=== PATIENT | female | born 1955 | race Caucasian/White ===

== ENCOUNTER → 2017-11-21 17:28 | Outpatient (CLI) | payer OTHER, MEDICAID, SELFPAY ==
--- NOTE | 2017-11-21 17:41 | DI.RAD.S_ITS ---
PROCEDURE: XR HAND LT MIN 3V INDICATIONS: Pain MCP 3rd finger; hx of foreign body in same area TECHNIQUE: 3 views of the hand(s) acquired. COMPARISON: None. FINDINGS: Bones: No fractures or dislocations. Carpal bones are normally aligned. No suspicious bony lesions. Mild to moderate interphalangeal degenerative osteophyte joint space narrowing. Soft tissues: No suspicious soft tissue calcifications. 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 No foreign body, and a specific source of the third MCP joint pain is not identified. Dictated by: Arron Mandujano M.D. on 11/22/2017 at 8:24 Approved by: Arron Mandujano M.D. on 11/22/2017 at 8:25
[2017-11-21 18:05] LABS: Add Manual Diff / Slide Review NO; Basophils Percent Auto 0.7 % (0-2); Eosinophils Percent Auto 1.3 % (2-4); Hematocrit 39.4 % (36-46); Hemoglobin 13.3 g/dL (12.0-16.0); Lymphocytes Percent Auto 16.7 % (25-40); Mean Corpuscular HGB Conc 33.8 % (30-36); Mean Corpuscular Hemoglobin 30.8 PG (26-34); Mean Corpuscular Volume 91.3 fL (80-100); Monocytes Percent Auto 4.4 % (3-14); Neutrophils Absolute Auto 8400 /uL (3000-5900); Neutrophils Percent Auto 76.9 % (50-75); Platelet Count 337 X10^3/uL (150-400); Red Blood Cell Count 4.31 X10^6/uL (4.0-5.2); Red Cell Distribution Width 14.1 % (11.6-14.8)
[2017-11-21 18:25] LABS: HEMOLYSIS < 15 (0-50); Iron 57 ug/dL (37-170)
[2017-11-21 18:27] LABS: Alanine Aminotransferase 28 IU/L (9-52); Albumin 4.3 g/dL (3.5-5.0); Albumin Globulin Ratio 1.5 (1.0-2.8); Alkaline Phosphatase 83 U/L (38-126); Aspartate Aminotransferase 24 IU/L (14-36); BUN Creatinine Ratio 22.5 (6-22); Bilirubin Total 0.3 mg/dL (0.2-1.3); Blood Urea Nitrogen 18 mg/dL (7-17); Calcium 10.1 mg/dL (8.4-10.2); Carbon Dioxide 32 mmol/L (22-32); Chloride 104 mmol/L (98-107); Estimated Glomerular Filt Rate > 60.0 mL/min (>60); Globulin 2.9 g/dL (1.7-4.1); Glucose 87 mg/dL (80-110); HEMOLYSIS < 15 (0-50); Sodium 144 mmol/L (137-145); Total Protein 7.2 g/dL (6.3-8.2)
[2017-11-21 18:32] LABS: Potassium 5.8 mmol/L (3.4-5.1)
[2017-11-21 18:36] LABS: Percent Iron Saturation 15 % (15-50); Total Iron Binding Capacity 368 ug/dL (265-497); Transferrin 313 mg/dL (206-381)
[2017-11-21 18:57] LABS: Thyroid Stimulating Hormone 0.94 uIU/mL (0.47-4.68)
[2017-11-21 19:02] LABS: Ferritin 19.5 ng/mL (11.1-264)
[2017-11-21 19:16] LABS: Vitamin B12 259 pg/mL (239-931)
== END ==
PROVIDERS: PCP Physician Assistant; Visit Provider Physician Assistant
DX: R55 Syncope and collapse (principal); M25.542 Pain in joints of left hand
CPT/HCPCS: 36415; 73130; 80053; 82607; 82728; 83540; 83550; 84443; 85025

== ENCOUNTER 2017-12-03 02:47 | Day surgery (SDC) | payer OTHER, MEDICAID, SELFPAY ==
[2017-12-03] VITALS (12 sets, daily range): BP systolic 77–99; BP diastolic 46–70; PULSE 67–98; RESP 10–24; TEMP 35.7–36.9; O2SAT 90–100; BMI 16.2
--- NOTE | 2017-12-03 03:27 | ED.FEMALEGU ---
HPI - Female Genitourinary General Chief complaint: Vaginal Bleeding Stated complaint: Vaginal bleeding during/after intercourse Time Seen by Provider: 12/03/17 03:00 Source: patient Mode of arrival: ambulatory Limitations: no limitations History of Present Illness HPI Narrative: 62F, non smoker, otherwise healthy presents with significant other and chief complaint of heavy vaginal bleeding after intercourse. She hasn't had intercourse in about 30 years. She denies any pain, But admits to significant heavy bright red bleeding. She admits to multiple episodes of vomiting and felt near syncopal. She admits to being pale and diaphoretic. She last ate at 10pm. She takes no blood thinners Complaint: vaginal bleeding Onset (ago): hour(s) Severity: moderate Vaginal discharge: blood, dark blood and blood clots Sexual activity: New Sexual Partners Patient : No Related Data Previous Rx's Medication Instructions Recorded estradiol 10 mcg vaginal tablet 10 mcg VAG 2XW #8 tab 11/21/17 medroxyprogesterone 5 mg tablet 5 mg PO DAILY #30 tab 11/21/17 cyanocobalamin (vit B-12) 1,000 1,000 mcg IM .COMPLEX #1 ml 11/30/17 mcg/mL injection solution Allergies Allergy/AdvReac Type Severity Reaction Status Date / Time No Known Allergies Allergy Uncoded 11/30/17 15:20 Review of Systems Review of Systems All systems reviewed & are unremarkable except as noted in HPI and below Constitutional Denies chills, Denies fever(s), Denies lethargy and Denies weakness Eyes Denies change in vision, Denies eye discharge, Denies irritation and Denies loss of vision ENT Ears, Nose, Mouth, and Throat: Denies change in voice, Denies neck pain and Denies sore throat Cardiovascular Denies chest pain, Denies irregular heart rhythm, Denies lightheadedness, Denies palpitations, Denies dyspnea, Denies dyspnea on exertion and Denies orthopnea Respiratory Denies cough, Denies dyspnea, Denies dyspnea on exertion and Denies wheezing Gastrointestinal Gastrointestinal: Denies abdominal pain, Denies change in bowel habits, Denies diarrhea, Denies nausea and Denies vomiting Genitourinary Reports abnormal vaginal bleeding, Denies hematuria, Denies flank pain, Denies urinary incontinence and Denies urinary urgency Musculoskeletal Denies neck pain Integumentary/Breasts Denies pruritus, Denies erythema, Denies rash and Denies wounds Neurologic Denies confusion, Denies loss of vision and Denies weakness Psychiatric Denies anxiety, Denies confusion, Denies depression, Denies homicidal ideation and Denies suicidal ideation Endocrine Denies palpitations Hematologic/Lymphatic Denies easy bruising Allergic/Immunologic Denies wheezing FOR[facility]LY [facility] Medical History Abdominal wall hernia (Chronic ~11/2016) Surgical History Hx of section (Resolved 10/1986) Family History Father No problems noted. Mother Cancer Social History Smoking Status: Former smoker Tobacco: How many years used: 13 second hand exposure: No alcohol intake: never substance use type: marijuana (smoke a tiny bit every day.) Exam Narrative Exam Narrative: 62-year-old female appears unwell, pale and sweaty Initial Vital Signs Initial Vital Signs: Vital Signs Temperature 96.2 F L 12/03/17 03:01 Pulse Rate 95 H 12/03/17 03:01 Respiratory Rate 15 12/03/17 03:01 Blood Pressure 98/61 12/03/17 03:01 Pulse Oximetry 100 12/03/17 03:01 Const General: cooperative, well developed, acute distress, anxious and diaphoretic Nutritional Appearance: thin Orientation: alert, awake, oriented x3 and not confused [facility] Head: normocephalic and atraumatic Ears: external ears normal and TM's normal bilaterally Nose: external nose normal and No nasal discharge Face and sinus: sinuses nontender, face symmetric, no sinus tenderness and No dry mucous membranes Mouth: oral mucosae normal and moist mucous membranes Teeth and gingiva: dentition normal Throat: tonsils normal and uvula midline Eyes General: appearance normal, both eyes and all related structures Eyelids: eyelids normal Conjunctivae: conjunctival abnormality ( pale) bilaterally Sclera: sclerae normal Pupils: PERRL EOM: EOM intact bilaterally Neck Neck: normal visual inspection, trachea midline, No lymphadenopathy, No midline deformity and No JVD Lymphatic: No lymphedema Chest Chest: normal inspection of the chest Resp Effort & Inspection: normal respiratory effort, able to speak in complete sentences, no respiratory distress and no use of accessory muscles Auscultation: clear to auscultation bilaterally, no rales, no rhonchi and no wheezes GI Inspection: non-distended Palpation: soft, no hepatosplenomegaly, No guarding, No pulsatile mass and No tender Auscultation: normal bowel sounds External Female Exam: exteral laceration ( small in bilateral labia, not likely the source of bleeding) Speculum Exam - Vagina: vaginal bleeding ( multiple very large clots and a large 5 cm deep laceration on the right vaginal wall and another 2-3 cm laceration on the left vaginal wall) OB/External & Speculum: vaginal bleeding ( multiple very large clots and a large 5 cm deep laceration on the right vaginal wall and another 2-3 cm laceration on the left vaginal wall) Course Orders Ordered: ED Orders 12/03/17 03:34 Basic Metabolic Panel Stat Complete Blood Count AUTO DIFF Stat Type and Screen Stat Acetaminophen (Tylenol) 325 mg PO NOW PRN PRN Reason: Pain, Mild (1-3) Hydrocodone Bitart/Acetaminophen ([place] 5/325) 1 tab PO Q4HR PRN PRN Reason: Pain, Moderate (4-6) Fentanyl (Sublimaze) 50 mcg IV Q5MIN PRN PRN Reason: Pain, Moderate (4-6) Lactated Ringer's (Lactated Ringers) 1,000 mls @ 42 mls/hr IV CONT COLTON Last Admin: 12/03/17 06:05 Dose: 42 mls/hr Ondansetron HCl (Zofran) 4 mg IV NOW PRN PRN Reason: Nausea And Vomiting Discontinued Medications Bupivacaine HCl/Epinephrine Bitart (Marcaine 0.25% W/ Epi) 10 ml INJ NOW ONE Stop: 12/03/17 06:21 Last Admin: 12/03/17 06:20 Dose: 10 ml Cefazolin Sodium/Dextrose (Ancef) 2 gm in 100 mls @ 200 mls/hr IV NOW ONE Stop: 12/03/17 06:04 Last Infusion: 12/03/17 06:20 Dose: 0 mls/hr Admin: 12/03/17 06:05 Dose: 200 mls/hr Lactated Ringer's (Lactated Ringers) 1,000 mls @ 100 mls/hr IV CONT COLTON Ondansetron HCl (Zofran) 4 mg IV NOW ONE Stop: 12/03/17 03:39 Last Admin: 12/03/17 03:39 Dose: 4 mg Ondansetron HCl (Zofran) 4 mg IV NOW ONE Stop: 12/03/17 05:15 Last Admin: 12/03/17 05:22 Dose: 4 mg Consultations Consultation #1: called to Dr. Dougherty for bedside consult. She elects to take patient to OR for laceration repair. Time: 04:10 Vital Signs - 8 hr 12/03/17 03:01 12/03/17 03:49 12/03/17 04:08 Temperature 96.2 F L Pulse Rate 95 H 98 H Respiratory Rate 15 16 Blood Pressure 98/61 Blood Pressure [Left Arm] 88/68 L 98/46 L Pulse Oximetry 100 100 12/03/17 05:00 12/03/17 05:30 12/03/17 06:06 Temperature 98.5 F Pulse Rate 87 87 83 Respiratory Rate 16 14 18 Blood Pressure 93/60 Blood Pressure [Left Arm] 99/70 90/64 Pulse Oximetry 100 99 97 12/03/17 06:38 Temperature 98.5 F Pulse Rate 75 Respiratory Rate 10 L Blood Pressure 90/57 L Blood Pressure [Left Arm] Pulse Oximetry 98 MDM - Female Genitourinary Medical Records Attestation: I reviewed the patient's medical records. Lab Data Attestation: I reviewed the patient's lab results. elevated WBC recognized and thought most likely to relate to physiologic stress of vomiting Result diagrams: 12/03/17 03:34 12/03/17 03:34 Lab Results 12/03/17 12/03/17 12/03/17 Range/Units 03:34 03:34 03:34 WBC 34.4 H* (4.5-11.0) X10^3/uL RBC 4.15 (4.0-5.2) X10^6/uL Hgb 12.2 (12.0-16.0) g/dL Hct 37.5 (36-46) % MCV 90.5 (80-100) fL MCH 29.4 (26-34) PG MCHC 32.5 (30-36) % RDW 13.8 (11.6-14.8) % Plt Count 414 H (150-400) X10^3/uL Neut % (Auto) Not Reportable Lymph % (Auto) Not Reportable [place] % (Auto) Not Reportable Eos % (Auto) Not Reportable Baso % (Auto) Not Reportable Seg Neutrophils % 74.0 H (38-70) % Band Neutrophils % 6.0 (3-7) % Lymphocytes % (Manual) 14.0 L (25-45) % Monocytes % (Manual) 3.0 (2-11) % Eosinophils % (Manual) 3.0 (2-4) % RBC Morphology Normal morphology Sodium 138 (137-145) mmol/L Potassium 3.9 (3.4-5.1) mmol/L Chloride 103 (98-107) mmol/L Carbon Dioxide 22 (22-32) mmol/L BUN 20 H (7-17) mg/dL Creatinine 0.80 (0.52-1.04) mg/dL Estimated GFR > 60.0 (>60) mL/min BUN/Creatinine Ratio 25.0 H (6-22) Glucose 177 H (80-110) mg/dL Calcium 9.4 (8.4-10.2) mg/dL Blood Type O Positive Antibody Screen Negative Point of Care Testing Test Results Not applicable Discharge Plan Departure Patient Disposition: Admitted as Observation Clinical Impression: Laceration of vagina, complicated Discharge Date/Time: 12/03/17 06:12 Interventions: ED Discharge Assessment Last Done: 12/03/17 06:00 Admit Date/Time: 12/03/17 05:58 Admit Provider: Brittany Dougherty
[2017-12-03] MEDS: ONDANSETRON 4 MG/2 ML INJ IV ×2 (03:39→05:22)
[2017-12-03 03:42] LABS: Hemoglobin 12.2 g/dL (12.0-16.0); Red Cell Distribution Width 13.8 % (11.6-14.8)
[2017-12-03 03:45] LABS: Hematocrit 37.5 % (36-46); Mean Corpuscular HGB Conc 32.5 % (30-36); Mean Corpuscular Hemoglobin 29.4 PG (26-34); Mean Corpuscular Volume 90.5 fL (80-100); Platelet Count 414 X10^3/uL (150-400); Red Blood Cell Count 4.15 X10^6/uL (4.0-5.2)
[2017-12-03 03:47] LABS: Add Manual Diff / Slide Review YES
[2017-12-03 03:48] LABS: White Blood Cell Count 34.4 X10^3/uL (4.5-11.0)
[2017-12-03 03:49] LABS: Blood Urea Nitrogen 20 mg/dL (7-17); Calcium 9.4 mg/dL (8.4-10.2); Carbon Dioxide 22 mmol/L (22-32); Chloride 103 mmol/L (98-107); Estimated Glomerular Filt Rate > 60.0 mL/min (>60); Glucose 177 mg/dL (80-110); HEMOLYSIS < 15 (0-50); Potassium 3.9 mmol/L (3.4-5.1); Sodium 138 mmol/L (137-145)
[2017-12-03 04:37] LABS: RBC Morphology Normal Morphology
--- NOTE | 2017-12-03 05:38 | PM.PREOP ---
Pre-operative Note Interval Note Pre-op Check: Yes History & Physical exam performed today by Physician Changes: No
--- NOTE | 2017-12-03 05:48 | P.HPOB_ITS ---
History of Present Illness Narrative: Savannah Clement is a 62 year old female with large vaginal laceration post intercourse [facility] Medical History Abdominal wall hernia (Chronic ~11/2016) Surgical History Hx of section (Resolved 10/1986) Family History Father No problems noted. Mother Cancer Social History Smoking Status: Former smoker Tobacco: How many years used: 13 second hand exposure: No alcohol intake: never substance use type: marijuana (smoke a tiny bit every day.) Meds Home Medications Medication Instructions Recorded Confirmed Type estradiol 10 mcg vaginal tablet 10 mcg VAG 2XW #8 tab 11/21/17 Rx medroxyprogesterone 5 mg tablet 5 mg PO DAILY #30 tab 11/21/17 Rx cyanocobalamin (vit B-12) 1,000 1,000 mcg IM .COMPLEX #1 ml 11/30/17 Rx mcg/mL injection solution Allergies Allergy/AdvReac Type Severity Reaction Status Date / Time No Known Allergies Allergy Uncoded 11/30/17 15:20 Review of Systems Review of Systems Patient denies abdominal pain. All systems reviewed & are unremarkable except as noted in HPI and below Exam Vital Signs (past 8 hours): - 12/03/17 03:01 12/03/17 03:49 12/03/17 04:08 Temperature 96.2 F L Pulse Rate 95 H 98 H Respiratory Rate 15 16 Blood Pressure 98/61 Blood Pressure [Left Arm] 88/68 L 98/46 L Pulse Oximetry 100 100 Oxygen Delivery Method Room Air Const General: anxious Nutritional Appearance: thin Orientation: alert HENMT Head: normal to inspection Resp Effort & Inspection: normal respiratory effort Auscultation: clear to auscultation bilaterally Cardio Rhythm: regular rhythm Heart Sounds: S1 normal and S2 normal GI Palpation: soft and no hepatosplenomegaly Rectal Exam: normal sphincter tone External Female Exam: external appearance normal Speculum Exam - Vagina: vaginal laceration (Right sidewall approximately 5 cm currently not actively bleeding) Speculum Exam - Cervix: normal appearance of the cervix Bimanual Exam- Vagina & Uterus: normal bimanual exam and uterine size normal Bimanual Exam- Adnexa, other: normal adnexae and adnexae non-tender Extrem General: normal to inspection Psych Affect: anxious affect Attitude: cooperative Objective Labs Result Diagrams: 12/03/17 03:34 12/03/17 03:34 Labs: Laboratory Results - last 24 hr 12/03/17 12/03/17 12/03/17 03:34 03:34 03:34 WBC 34.4 H* RBC 4.15 Hgb 12.2 Hct 37.5 MCV 90.5 MCH 29.4 MCHC 32.5 RDW 13.8 Plt Count 414 H Neut % (Auto) Not Reportable Lymph % (Auto) Not Reportable [place] % (Auto) Not Reportable Eos % (Auto) Not Reportable Baso % (Auto) Not Reportable Seg Neutrophils % 74.0 H Band Neutrophils % 6.0 Lymphocytes % (Manual) 14.0 L Monocytes % (Manual) 3.0 Eosinophils % (Manual) 3.0 RBC Morphology Normal morphology Sodium 138 Potassium 3.9 Chloride 103 Carbon Dioxide 22 BUN 20 H Creatinine 0.80 Estimated GFR > 60.0 BUN/Creatinine Ratio 25.0 H Glucose 177 H Calcium 9.4 Blood Type O Positive Antibody Screen Negative Assessment & Plan (1) Traumatic vaginal laceration: Qualifiers: Encounter type: initial encounter Qualified Code(s): S31.41XA - Laceration without foreign body of vagina and vulva, initial encounter Current visit: Yes Status: Acute Plan: Assessment/Plan Narrative: Patient did not feel she could tolerate repair in the emergency room. We will proceed to the operating room for suturing of the vaginal laceration. Time Spent With Patient Time with patient: 25 - 35 minutes
[2017-12-03] MEDS: LACTATED RINGERS 1,000 ML 42 ML IV (06:05)
[2017-12-03] MEDS: CEFAZOLIN 2 GM/100 ML FROZ.PIGGY IV (06:05)
[2017-12-03] MEDS: BUPIVACAINE 0.25% W/ EPI VIAL 10 ML INJ (06:20)
--- NOTE | 2017-12-03 06:44 | PM.OP.1 ---
Operative Date/Time/Diagnoses Date of procedure: 12/03/17 Time of procedure: 06:44 Pre-op diagnosis: vaginal laceration Post-op diagnosis: same Procedure & Clinicians Procedure: repair of vaginal laceration Same procedure as scheduled: Yes Indications: deep right sidewall vaginal laceration post intercourse Surgeon: Brittany Dougherty Click Yes if Unassisted: Yes Anesthesia Type: General Operative Notes Findings: superficial left sidewall vaginal tear with 6 cm long and 1 cm deep right vaginal sidewall tear. clear urine on straight cath. rectal exam does not reveal any abnormality Closure Type: primary Specimen(s): none sent Estimated Blood Loss (mL): 20 Blood products transfused: none Procedure in detail: Patient was brought to the operating room where she underwent general anesthesia. She was placed in low Yellofin stirrups and prepped and draped in the usual sterile fashion 2 g Ancef fever in prior to beginning of the case. Warming was with blankets. Postop stockings were not indicated due to short nature of the procedure. A check system was reviewed with the staff in the room prior to beginning of the case. The bladder was drained with in- and out catheter. 3- 0 Vicryl suture was used to repair the vaginal defect. No active bleeding at the end of the case. Patient went to recovery room in good condition. Counts of instruments and sponges were correct. Complications: none Condition: stable Disposition: same day surgery Plan for aftercare: home when awake and stable
--- NOTE | 2017-12-03 07:40 | SUR.PHASEII ---
ZAHRAA ARRIVED WITH CLOTHES FOR PT TO CHANGE INTO, PT RE4ADY TO GO, SMALL AMOUNT OF BLOODY DRAINAGE ON PEDRO PAD.M PT STEADY WHEN UP AND LEFT IN STABLE CONDITION.
== END 2017-12-03 07:40 | disposition home or self-care (01) ==
LOC: ED 03:06 → AC 06:00 → OR 14:58
PROVIDERS: Emergency Provider Emergency Medicine; PCP Physician Assistant; Visit Provider Specialist
PROC: (CPT 59300; principal; 2017-12-03 05:55)
DX: S31.41XA Laceration without foreign body of vagina and vulva, initial encounter (principal); Z87.891 Personal history of nicotine dependence
CPT/HCPCS: 57200; 36591; 80048; 85025; 86850; 86900; 86901; 96361; 96374; 96375; 96376; 99283; 99285; G0378; J0690; J2250; J2405; J2704; J3010

== ENCOUNTER → 2018-01-09 10:53 | Outpatient (CLI) | payer OTHER, MEDICAID, SELFPAY ==
--- NOTE | 2018-01-09 10:56 | DI.RAD.S_ITS ---
PROCEDURE: XR FINGER RT MIN 2V INDICATIONS: R index finger strain TECHNIQUE: AP hand, 2 views of the right finger(s) acquired. COMPARISON: None. FINDINGS: Bones: No fractures or dislocations. No suspicious bony lesions. There is diffuse interphalangeal joint degeneration. Mild first CMC and triscaphe joint degeneration. Soft tissues: No suspicious soft tissue calcifications. 3 mm radiopaque foreign body projecting adjacent to the third metacarpal head IMPRESSION: No fracture identified. Repeat foreign body versus postsurgical change projecting adjacent to the third metacarpal head. Dictated by: Tripp Hartley M.D. on 01/09/2018 at 14:00 Approved by: Tripp Hartley M.D. on 01/09/2018 at 14:03
[2018-01-09 12:01] LABS: Add Manual Diff / Slide Review NO; Eosinophils Percent Auto 1.8 % (2-4); Hematocrit 38.6 % (36-46); Hemoglobin 12.5 g/dL (12.0-16.0); Lymphocytes Percent Auto 25.5 % (25-40); Mean Corpuscular HGB Conc 32.4 % (30-36); Mean Corpuscular Hemoglobin 28.8 PG (26-34); Mean Corpuscular Volume 89.1 fL (80-100); Monocytes Percent Auto 7.5 % (3-14); Neutrophils Absolute Auto 6100 /uL (3000-5900); Neutrophils Percent Auto 64.2 % (50-75); Platelet Count 438 X10^3/uL (150-400); Red Blood Cell Count 4.33 X10^6/uL (4.0-5.2); Red Cell Distribution Width 13.8 % (11.6-14.8); White Blood Cell Count 9.6 X10^3/uL (4.5-11.0)
[2018-01-09 12:10] LABS: Uric Acid 4.3 mg/dL (2.5-6.2)
[2018-01-09 12:16] LABS: Rheumatoid Factor < 8.6 IU/mL (<12.0)
[2018-01-09 12:21] LABS: Erythrocyte Sedimentation Rate 21 MM/HR (0-20)
== END ==
PROVIDERS: PCP Physician Assistant; Visit Provider Family Medicine
DX: S63.610A Unspecified sprain of right index finger, initial encounter (principal); M18.11 Unilateral primary osteoarthritis of first carpometacarpal joint, right hand; M19.041 Primary osteoarthritis, right hand
CPT/HCPCS: 36415; 73140; 84550; 85025; 85651; 86430

== ENCOUNTER → 2018-01-19 16:41 | Outpatient (CLI) | payer OTHER, MEDICAID, SELFPAY | PROVIDERS: PCP Physician Assistant; Visit Provider Physician Assistant | DX: N89.8 Other specified noninflammatory disorders of vagina (principal); R10.32 Left lower quadrant pain | CPT/HCPCS: 87210; 87252; 87491; 87591 ==

== ENCOUNTER → 2018-02-03 10:56 | Outpatient (CLI) | payer OTHER, MEDICAID, SELFPAY ==
--- NOTE | 2018-02-03 10:58 | DI.US.S_ITS ---
PROCEDURE: US PELVIC COMPLETE INDICATIONS: LLQ PAIN TECHNIQUE: Real-time scanning was performed of the pelvic organs, with image documentation. The patient declined transvaginal imaging. COMPARISON: None. FINDINGS: Transabdominal scanning: Limited scanning through the kidneys shows no hydronephrosis. No pathologic free abdominal or pelvic fluid. Endovaginal scanning: Uterus: Uterus is normal in size at 7.9 x 1.8 x 3.1 cm. The endometrium measures 1 mm in combined thickness. Ovaries: The ovaries are only seen transabdominally, secondary to their superior location. The right ovary measures 1.5 x 0.8 x 1.5 cm. The left ovary measures 2.4 x 0.9 x 1.5 cm. The ovaries have a normal sonographic appearance. No adnexal masses are seen. IMPRESSION: Normal study, without a cause of left lower quadrant pain identified. Only transabdominal imaging was performed. Dictated by: Rhys Stovall M.D. on 02/03/2018 at 11:24 Approved by: Rhys Stovall M.D. on 02/03/2018 at 11:27
== END ==
PROVIDERS: PCP Physician Assistant; Visit Provider Physician Assistant
DX: R10.32 Left lower quadrant pain (principal)
CPT/HCPCS: 76856

== ENCOUNTER 2021-03-10 17:10 | Emergency (ER) | payer OTHER, MEDICAID, SELFPAY ==
[2021-03-10 17:28] VITALS: BP 129/75; PULSE 79; RESP 14; TEMP 36.3; O2SAT 100; BMI 16.8
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
--- NOTE | 2021-03-10 19:23 | PC.NURSE ---
Patients daughter in hallway raising voice at staff I need a wheelchair to get my mother out of here, we don't need to be yelled at by a doctor Spoke with Dr Peralta regarding interaction with daughter, provider and this RN entered room to speak with patient. Daughter immediately raised voice my mother won't be doing any talking she doesn't need to be yelled at Provider asked patient and daughter to stop yelling at him. Both patient and daughter continued to yell at Dr Peralta, reaching over patients bed and pointing in Dr Peralta's face. Dr Peralta again firmly told patient's daughter to stop yelling at him and left the room. I thought you were coming back with a wheelchair not a dirty trick to be yelled at by him Attempted to deescalate patient and daughter, offered a wheelchair, declined by patient. Patient and daughter briskly exited department with no difficulty.
--- NOTE | 2021-03-10 19:26 | PC.NURSE ---
This BARREL PLANER heard a raised voice coming from the triage room upon patient's arrival. This BARREL PLANER went to the traige room to assess the situation and ask the nurse if she needed assistance. The nurse was fine so that door was closed as there were patients in the hallway being treated who seemed frightened by the patient whose voice was raised.
--- NOTE | 2021-03-10 19:28 | PC.NURSE ---
This PHYSICAL SECURITY MANAGER retrieved patient from the waiting area. The patient was leaned up against the wall and did not help move herself so that this PHYSICAL SECURITY MANAGER could wheel her into the emergency department. The patient was raising her voice at her daughter in the huffman as this PHYSICAL SECURITY MANAGER was helping to wheel patient back. On the way through the department to get patient to her assigned room, patient was continuing to raise her voice and her daughter and demanding her to help her. Once in the room, patient continued to demand care from her daughter. This PHYSICAL SECURITY MANAGER assisted patient on to the bed and did not speak to the patient other than letting her know what kind of care would be done. This PHYSICAL SECURITY MANAGER got her into bed and the patient proceeded to raise her voice at both daughter and this PHYSICAL SECURITY MANAGER that she was cold. This PHYSICAL SECURITY MANAGER got many blankets from the warmer and took them back to her room. This PHYSICAL SECURITY MANAGER asked her to sit up so that a blanket could be wrapped around her shoulders. The patient said that she could not sit up and raised her voice at her daughter who was trying to adjust patient's pillows. This PHYSICAL SECURITY MANAGER assisted patient to sit up and a blanket was placed behind her. When the patient laid back, she immediately raised her voice at her daughter than her head was too far back as her pillows were placed more under her shoulders, likely by accident. The daughter raised her voice back and said that she was sorry and would fix it. The patient proceeded to sit herself up without any assistance and the daughter adjusted the pillows. The patient then raised her voice at her daughter again stating that the pillows were too far up. All the while this PHYSICAL SECURITY MANAGER was placing blankets on the patient. After 2 blankets were placed on patient, patient raised her voice at me saying that if anymore blankets were put on then she would be too hot. The daughter thanked this PHYSICAL SECURITY MANAGER for helping. This PHYSICAL SECURITY MANAGER told patient that vitals would need to be updated as they hadn't been taken for a while and stated that her arm would need to be uncovered. This PHYSICAL SECURITY MANAGER asked which arm was preferred to which patient stated loudly her left. Patient's arm was uncovered and the blood pressure cuff was placed. This PHYSICAL SECURITY MANAGER turned around to grab the pulse ox and patient immediately began to shout [id number]. The daughter covered patient's arm and apologized that her arm was cold. This PHYSICAL SECURITY MANAGER lifted the blanket slightly, applied the pulse ox to patient's finger, then cycled the vitals. While waiting for the vitals result, patient yelled BLISTEX to her daughter and continued to say it loudly until her daughter started to apply the balm to patient's lips. While applying, patient started to yell at her daughter that there was hair in her blistex. Daughter removed the hair and apologized. Once vitals were complete, this PHYSICAL SECURITY MANAGER told daughter that if patient needed any assistance at all, we were available. This PHYSICAL SECURITY MANAGER then told daughter that if she also needed anything, we would be very happy to assist her, as well. This PHYSICAL SECURITY MANAGER exited the room.
--- NOTE | 2021-03-10 19:45 | PC.NURSE ---
This GENERAL ROAD SUPERVISOR heard yelling from patient's room several times while there were no staff in the room. The yelling seemed to come from both daughter and patient.
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
--- NOTE | 2021-03-10 19:47 | PC.NURSE ---
This SWAGE TOOLSETTER witnessed patient's daughter speaking to two RNs in the department describing the interaction between the Dr and the patient. The daughter stated that she would like a wheelchair to leave the department. One of the RNs reported this to the Dr who attempted to go in and speak with the patient. Two RNs also went in with the Dr to witness. The door opened and I heard the daughter swear to the Dr and raised her voice. She stated that she and the patient would walk out without a wheelchair. Patient seemed to ambulate without difficulty as daughter walked her out of the department.
== END 2021-03-10 19:30 | disposition left against medical advice (07) ==
PROVIDERS: Emergency Provider Emergency Medicine
DX: S00.83XA Contusion of other part of head, initial encounter (principal); Z87.891 Personal history of nicotine dependence; V89.2XXA Person injured in unspecified motor-vehicle accident, traffic, initial encounter
CPT/HCPCS: 99281

== ENCOUNTER 2021-07-20 16:55 | Emergency (ER) | payer OTHER, SELFPAY ==
[2021-07-20 17:08] VITALS: BP 147/83; PULSE 114; RESP 20; TEMP 36.5; O2SAT 96
--- NOTE | 2021-07-20 17:24 | DI.CT.S_ITS ---
PROCEDURE: CT HEAD/BRAIN WO CON INDICATIONS: headache/dizziness TECHNIQUE: Noncontrast 4.5 mm thick angled axial sections acquired from the foramen magnum to the vertex, with coronal and sagittal reformats. For radiation dose reduction, the following was used: automated exposure control, adjustment of mA and/or kV according to patient size. COMPARISON: [facility], CT, CT HEAD WITHOUT CONTRAST, 01/02/2019, 14:07. FINDINGS: Image quality: Excellent. CSF spaces: Basal cisterns are patent. No extra-axial fluid collections. The ventricles are symmetric in size and shape. Brain: No intracranial bleeds or masses. Anterior right frontal encephalomalacia has developed in the interval since the prior exam which could represent sequela of prior trauma or infarct. There is cerebral volume loss for age, with resultant ventricular and sulcal prominence. There are periventricular and deep white matter chronic small vessel ischemic changes. There is intracranial internal carotid artery atherosclerosis. Skull and face: Calvarium and visualized facial bones appear intact, without suspicious lesions. Sinuses: Visualized sinuses and mastoids are clear. IMPRESSION: 1. No acute intracranial disease process. 2. Anterior right frontal encephalomalacia which could be related to prior trauma or cerebral vascular accident. Dictated by: Luzma Coughlin MD, PhD on 07/20/2021 at 17:39 Approved by: Luzma Coughlin MD, PhD on 07/20/2021 at 17:41
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
[2021-07-20] MEDS: SODIUM CHLORIDE 0.9% 1,000 ML 1000 ML IV (20:49)
[2021-07-20] MEDS: KETOROLAC 30 MG/ML VIAL 15 MG IV (20:49)
[2021-07-20] MEDS: METOCLOPRAMIDE 10 MG/2 ML INJ IV (20:50)
[2021-07-20 20:51] LABS: Add Manual Diff / Slide Review NO; Basophils Absolute Auto 100 /uL (0-100); Basophils Percent Auto 1.3 % (0-2); Eosinophils Absolute Auto 0 /uL (0-450); Eosinophils Percent Auto 0.2 % (2-4); Hematocrit 39.9 % (36-46); Hemoglobin 13.5 g/dL (12.0-16.0); Lymphocytes Absolute Auto 1900 /uL (1100-4500); Lymphocytes Percent Auto 20.7 % (25-40); Mean Corpuscular HGB Conc 33.9 % (30-36); Mean Corpuscular Hemoglobin 29.1 PG (26-34); Mean Corpuscular Volume 85.6 fL (80-100); Monocytes Absolute Auto 500 /uL (0-900); Monocytes Percent Auto 5.6 % (3-14); Neutrophils Absolute Auto 6600 /uL (1500-7000); Neutrophils Percent Auto 72.2 % (50-75); Platelet Count 368 X10^3/uL (150-400); Red Blood Cell Count 4.66 X10^6/uL (4.0-5.2); Red Cell Distribution Width 14.4 % (11.6-14.8); White Blood Cell Count 9.2 X10^3/uL (4.5-11.0)
[2021-07-20 21:03] LABS: Alanine Aminotransferase 25 IU/L (<35); Albumin 4.8 g/dL (3.5-5.0); Albumin Globulin Ratio 1.2 (1.0-2.8); Alkaline Phosphatase 115 U/L (38-126); Aspartate Aminotransferase 31 IU/L (14-36); BUN Creatinine Ratio 16.2 (6-22); Bilirubin Total 0.5 mg/dL (0.2-1.3); Blood Urea Nitrogen 11 mg/dL (7-17); C-Reactive Protein Quant 0.9 mg/dL (<1.0); Calcium 9.5 mg/dL (8.4-10.2); Carbon Dioxide 22 mmol/L (22-32); Chloride 105 mmol/L (98-107); Estimated Glomerular Filt Rate > 60 mL/min (>60); Glucose 115 mg/dL (80-110); HEMOLYSIS < 15 (0-50); Potassium 4.2 mmol/L (3.4-5.1); Sodium 137 mmol/L (137-145); Total Protein 8.8 g/dL (6.3-8.2)
[2021-07-20 21:16] LABS: Erythrocyte Sedimentation Rate 31 MM/HR (0-20)
[2021-07-20 21:40] LABS: Influenza A - CEPHEID Flu A NEGATIVE (NEGATIVE); Influenza B - CEPHEID Flu B NEGATIVE (NEGATIVE)
[2021-07-20 21:54] LABS: COVID-19 CEPHEID PCR (VTM/NP) Negative (Negative)
[2021-07-20 22:19] VITALS: BP 138/74; PULSE 88; RESP 18; O2SAT 99
== END 2021-07-20 22:20 | disposition home or self-care (01) ==
PROVIDERS: Emergency Provider Emergency Medicine
DX: R51.9 Headache, unspecified (principal); R11.0 Nausea; Z20.822 Contact with and (suspected) exposure to COVID-19
CPT/HCPCS: 36415; 70450; 80053; 85025; 85651; 86140; 87635; 96361; 96374; 96375; 99284; C9803; J1885; J2765

== ENCOUNTER 2021-08-15 16:01 | Emergency (ER) | payer OTHER, MEDICAID, SELFPAY ==
[2021-08-15 16:12] VITALS: BP 114/72; PULSE 90; RESP 18; TEMP 37.1; O2SAT 95; BMI 18.5
--- NOTE | 2021-08-15 16:27 | DI.RAD.S_ITS ---
PROCEDURE: XR CHEST 1V INDICATIONS: covid+, COPD, wheezing TECHNIQUE: One view of the chest was acquired. COMPARISON: [facility], CT, CT CHEST WITHOUT CONTRAST, 06/04/2021, 14:43. Outside Film, CR, XR CHEST 1 VIEW, 03/05/2021, 21:39. FINDINGS: Surgical changes and devices: None. Lungs and pleura: Lungs are clear, yet mildly hyperexpanded. No pleural effusions or pneumothorax. Mediastinum: Mediastinal contours appear normal. Heart size is normal. Atherosclerotic calcification of the aortic arch is noted. Bones and chest wall: No suspicious bony lesions. Age-appropriate bony degenerative changes are seen. Mild dextroconvex scoliotic curvature is seen. Overlying soft tissues appear unremarkable. IMPRESSION: No infiltrates are seen. The lungs are mildly hyperexpanded. Dictated by: Rhys Stovall M.D. on 08/15/2021 at 16:00 Approved by: Rhys Stovall M.D. on 08/15/2021 at 16:01
[2021-08-15] MEDS: guaiFENesin ER 600 MG TAB PO (16:45)
[2021-08-15] MEDS: ONDANSETRON 4 MG ODT SL (16:45)
[2021-08-15] MEDS: ACETAMINOPHEN 325 MG TABLET 650 MG PO (16:46)
[2021-08-15] MEDS: LORATADINE 10 MG TABLET PO (16:46)
--- NOTE | 2021-08-15 17:14 | ED.NAVMDI ---
HPI - Nausea/Vomiting/Diarrhea <Florence Rizzo [facility] - Last Filed: 08/15/21 18:43> General Chief complaint: Nausea/Vomiting/Diarrhea Stated complaint: COVID +, Strep,Sinus Infection,Ear Infection Time Seen by Provider: 08/15/21 16:13 Source: patient Mode of arrival: Ambulatory History of Present Illness HPI Narrative: This is a 65-year-old female with COPD who presents to the emergency department with her daughter complaining of COVID positive symptoms. Patient is unvaccinated for COVID, presents to the emergency department today for a cough, headache, tested positive for COVID yesterday, endorses a sore throat with concern for strep throat. Patient states that she has had symptoms on and off which are similar for approximately one month. She has been seen at multiple emergency department and left without being seen for not receiving treatments that she has wanted. Patient states that she has strep and a sinus infection and ear infection but has not had any of them evaluated by a clinician. Patient states that she has difficulty swallowing, states that every time she tries to swallow something, she will want to vomit later. She states that it is been this way since she was seen in the emergency department on 07/20/2021 for headache. She states that she was given IV fluid and this resolved her swallowing problem. Patient denies taking any medications for her COPD. Related Data Previous Rx's Medication Instructions Recorded medroxyprogesterone 5 mg tablet 5 mg PO DAILY #30 tabs 11/21/17 cyanocobalamin (vitamin B-12) 1,000 mcg IM .COMPLEX #1 mL 11/30/17 1,000 mcg/mL injection solution estradiol 10 mcg vaginal tablet 10 mcg vaginal .COMPLEX #22 tabs 12/27/17 acetaminophen 325 mg tablet 650 mg PO Q6H PRN pain #30 tabs 08/15/21 (Tylenol) cetirizine 10 mg tablet 10 mg PO DAILY PRN congestion #20 08/15/21 tabs guaifenesin 600 mg tablet, 600 mg PO BID PRN productive cough 08/15/21 extended release 12 hr (Mucinex) #14 tabs ibuprofen 600 mg tablet 600 mg PO Q8H PRN pain #30 tabs 08/15/21 nirmatrelvir 300 mg (150 mg x See Rx Instructions PO .COMPLEX 08/15/21 2)-ritonavir 100 mg tablet (EUA) #30 tabs (Paxlovid 300 mg () ondansetron 4 mg disintegrating 4 mg PO Q6-8H PRN nausea and 08/15/21 tablet vomiting #10 tabs Allergies Allergy/AdvReac Type Severity Reaction Status Date / Time No Known Drug Allergies Allergy Verified 03/10/21 17:28 Review of Systems <FALLON Cardozo - Last Filed: 08/15/21 18:43> Review of Systems Narrative: General: denies fever, chills, weakness, dizziness Head/Neck: denies headache, neck pain Eyes: denies visual changes, eye pain Cardio: denies chest pain, palpitations Respiratory: denies shortness of breath, endorses having a productive cough GI: denies abdominal pain, nausea, vomiting, or diarrhea : denies dysuria, hematuria or flank pain MSK: denies new joint pain, muscle weakness or swelling Skin: denies rash, itching or wound Neuro: denies numbness, tingling, dizziness Patient History <FALLON Cardozo - Last Filed: 08/15/21 18:43> Medical History Abdominal wall hernia (~11/2016) Laceration of vagina (12/03/17) Surgical History History of section (03/04/89) History of section (10/10/86) History of vaginal surgery (12/03/17) Family History Father No problems noted. Mother Cancer Sister No problems noted. Social History Smoking Status: Former smoker Tobacco: How many years used: 13 second hand exposure: No alcohol intake: never substance use type: marijuana (smoke a tiny bit every day.) Smoking Status: Former smoker alcohol intake frequency: holidays/special occasions only Substance Use Type: marijuana Exam <FALLON Cardozo - Last Filed: 08/15/21 18:43> Narrative Exam Narrative: Independently reviewed vitals signs and nursing notes. General: cooperative, comfortable, in no acute distress, well groomed Head: atraumatic, symmetrical facial expressions Neck: supple Eyes: equal round and reactive, EOMI, conjunctiva normal Nose: nares patent, no rhinorrhea Mouth/Throat: moist mucus membranes Cardiovascular: regular rate and rhythm, no peripheral edema, warm extremities Respiratory: able to speak in complete sentences, scattered and intermittent expiratory wheezes throughout lung mcdowell, without stridor, or rales. No retractions or tachypnea. No increased respiratory effort GI: abdomen soft, nontender to palpation, nondistended, no masses, no exquisite tenderness with exam, without guarding or rebound. MSK: moves all extremities, neurovascularly intact, no weakness, normal tone Skin: brisk capillary refill, no rash, no erythema Neuro: normal speech and cognition, A&O x3 Psych: mental status is grossly normal, congruent mood, normal affect, pleasant and cooperative Initial Vital Signs Initial Vital Signs: Vital Signs Temperature 98.7 F 08/15/21 16:12 Pulse Rate 90 08/15/21 16:12 Respiratory Rate 18 08/15/21 16:12 Blood Pressure 114/72 08/15/21 16:12 Pulse Oximetry 95 08/15/21 16:12 Oxygen Delivery Method 08/15/21 16:12 <Toma Fritz DO - Last Filed: 08/16/21 08:11> Initial Vital Signs Initial Vital Signs: Vital Signs Temperature 98.7 F 08/15/21 16:12 Pulse Rate 90 08/15/21 16:12 Respiratory Rate 18 08/15/21 16:12 Blood Pressure 114/72 08/15/21 16:12 Pulse Oximetry 95 08/15/21 16:12 Oxygen Delivery Method 08/15/21 16:12 Course <FALLON Cardozo - Last Filed: 08/15/21 18:43> Orders Ordered: Discontinued Medications Acetaminophen (Acetaminophen 325 Mg Tablet) 650 mg PO NOW ONE Stop: 08/15/21 16:31 Last Admin: 08/15/21 16:46 Dose: 650 mg Documented By: XANDER Albuterol (Albuterol Hfa Mdi 60 Puff/8 Gm Inhaler) 2 puff INH NOW ONE Stop: 08/15/21 17:40 Last Admin: 08/15/21 17:42 Dose: 2 puff Documented By: TODD Guaifenesin (Guaifenesin Er 600 Mg Tab) 600 mg PO NOW ONE Stop: 08/15/21 16:31 Last Admin: 08/15/21 16:45 Dose: 600 mg Documented By: XANDER Loratadine (Loratadine 10 Mg Tablet) 10 mg PO NOW ONE Stop: 08/15/21 16:31 Last Admin: 08/15/21 16:46 Dose: 10 mg Documented By: XANDER Ondansetron HCl (Ondansetron 4 Mg Odt) 4 mg SL NOW ONE Stop: 08/15/21 16:42 Last Admin: 08/15/21 16:45 Dose: 4 mg Documented By: XANDER Vital Signs Vital signs: Vital Signs - 8 hr 08/15/21 16:12 08/15/21 17:56 Temperature 98.7 F Pulse Rate 90 Respiratory Rate 18 Blood Pressure 114/72 Pulse Oximetry 95 Oxygen Delivery Method Room Air Room Air <Toma Fritz, - Last Filed: 08/16/21 08:11> Orders Ordered: Discontinued Medications Acetaminophen (Acetaminophen 325 Mg Tablet) 650 mg PO NOW ONE Stop: 08/15/21 16:31 Last Admin: 08/15/21 16:46 Dose: 650 mg Documented By: XANDER Albuterol (Albuterol Hfa Mdi 60 Puff/8 Gm Inhaler) 2 puff INH NOW ONE Stop: 08/15/21 17:40 Last Admin: 08/15/21 17:42 Dose: 2 puff Documented By: TODD Guaifenesin (Guaifenesin Er 600 Mg Tab) 600 mg PO NOW ONE Stop: 08/15/21 16:31 Last Admin: 08/15/21 16:45 Dose: 600 mg Documented By: XANDER Loratadine (Loratadine 10 Mg Tablet) 10 mg PO NOW ONE Stop: 08/15/21 16:31 Last Admin: 08/15/21 16:46 Dose: 10 mg Documented By: XANDER Ondansetron HCl (Ondansetron 4 Mg Odt) 4 mg SL NOW ONE Stop: 08/15/21 16:42 Last Admin: 08/15/21 16:45 Dose: 4 mg Documented By: XANDER Vital Signs Vital signs: Vital Signs - 8 hr 08/15/21 16:12 08/15/21 17:56 Temperature 98.7 F Pulse Rate 90 Respiratory Rate 18 Blood Pressure 114/72 Pulse Oximetry 95 Oxygen Delivery Method Room Air Room Air [facility] - Nausea/Vomiting/Diarrhea <FALLON Cardozo - Last Filed: 08/15/21 18:43> Lab Data Labs: Lab Results 08/15/21 Range/Units 16:35 Group A Strep (PCR) Cancelled Point of Care Testing Rapid Strep A Negative Imaging Data Chest x-ray: Radiologist's Impression: PROCEDURE:? XR CHEST 1V ? INDICATIONS:? covid+, COPD, wheezing ? TECHNIQUE:? One view of the chest was acquired.? ? COMPARISON:? [facility], CT, CT CHEST WITHOUT CONTRAST, 06/04/2021, 14:43.? Outside Film, CR, XR CHEST 1 VIEW, 03/05/2021, 21:39. ? FINDINGS:? ? Surgical changes and devices:? None.? ? Lungs and pleura:? Lungs are clear, yet mildly hyperexpanded.? No pleural effusions or pneumothorax.? ? Mediastinum:? Mediastinal contours appear normal.? Heart size is normal.? Atherosclerotic calcification of the aortic arch is noted.? ? Bones and chest wall:? No suspicious bony lesions.? Age-appropriate bony degenerative changes are seen.? Mild dextroconvex scoliotic curvature is seen.? ? Overlying soft tissues appear unremarkable.? ? ? IMPRESSION:? No infiltrates are seen. ? The lungs are mildly hyperexpanded. ? ? Dictated by: Rhys Stovall M.D. on 08/15/2021 at 16:00 ? ? Approved by: Rhys Stovall M.D. on 08/15/2021 at 16:01 ? [facility] Narrative Medical decision making narrative: This is a 65-year-old female smoker with history of COPD, COVID unvaccinated, and presents to the emergency department saying that she tested positive for COVID yesterday and has a productive cough and a sore throat. She was previously at [facility] prior to showing up here and with left against medical advice for not receiving the treatment she was looking for. She is here with her daughter who also did the same. The state that her cough and her symptoms have been ongoing for approximately one month but she tested negative for COVID on 08/12/2021 and tested positive for yesterday on 08/14/2021. A rapid strep screen was negative for group strep a, throat culture was obtained and is pending. Since patient is COVID positive, we will wait for culture to grow well prior to treating with antibiotics. Patient's chest x-ray shows lungs are mildly hyperexpanded without any infiltrates. She was given an albuterol inhaler and MDI teaching by respiratory therapy for wheezing. Encourage patient to avoid smoking while ill with a respiratory virus, opted to treat her with Paxlovid due to her comorbidities and age. She was counseled on taking this medication, she was given symptom management medications including cetirizine, guaifenesin Tylenol and ibuprofen as they say that they do not have any of these medications at home. She was given Zofran because she states that she vomits after she tries to swallow anything and cannot keep anything down. Patient was given Zofran, and she was able to tolerate her water, she has not had any gagging or vomiting episodes. COVID (+) on day 2 since testing positive without hypoxia, respiratory distress, dehydration, or focal exam to suggest secondary bacterial infection. Discussed CDC guidelines for quarantine, mask wearing, physical distancing, and infection prevention measures such as frequent handwashing. Discussed supportive treatments: Tylenol/Motrin as needed for pain/fever. OTC decongestant medications and/or antihistamines for symptomatic relief. Maintain adequate fluid intake. Follow-up with PCP as directed. Return to clinic/ER instructions discussed for new, not improving, or worsening symptoms. All questions answered. <Toma Fritz, DO - Last Filed: 08/16/21 08:11> Lab Data Labs: Lab Results 08/15/21 Range/Units 16:35 Group A Strep (PCR) Cancelled Point of Care Testing Rapid Strep A Negative Discharge Plan Departure Patient Disposition: Home Clinical Impression: COVID-19 Instructions: DI for Chronic Obstructive Pulmonary Disease, DI for COVID-19 (Suspected or Confirmed ) Activity Restrictions/Additional Instructions: *You have been diagnosed with COVID and COPD. Please use your albuterol inhaler for wheezing and chest tightness as needed. 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 Please stay hydrated and drink plenty of water. Take Tylenol and ibuprofen as needed for fever or pain. I have prescribed 30 tabs of each which you can both use. Please take cetirizine for the next 5-7 days or as long as you have congestion and a productive cough. Please take Mucinex for your productive cough to help that thin in make it easier to manage. Take Zofran as needed for nausea and vomiting. Please establish care with a primary care provider and follow-up with them about your symptoms, this will help you in the future treat your health conditions like COPD with inhalers which can be helpful for you. Try to avoid smoking, focus on staying hydrated to you do not get worse, and return to the emergency department if you are unable to treat your symptoms with medications that you have been provided. You do not have any pneumonia on x-ray today, please quarantine for as long as you continue to have symptoms, try to not share your symptoms with others. *What to do: *Please continue to take your regular medications as directed. [ x] New medication prescriptions sent to your pharmacy: [[facility] ] [ ] New medication written as a paper prescription [ ] No new medications given *Please follow up with your primary care provider in 2-3 days, call for an appointment. Let them know you were seen in the Emergency Department and that we asked that you be seen for follow-up. We will electronically transmit a record of today's note if your PCP is in our system *If you do not have a primary care provider please contact [phone] to establish care with one of the [facility] primary care providers. *Return to Emergency Department if you should have any new, worsening or concerning symptoms, such as [fever greater than 101F, chills, worsening pain, persistent vomiting or other bothersome symptoms] Prescriptions: New ondansetron 4 mg tablet,disintegrating 4 mg PO Q6-8H PRN (Reason: nausea and vomiting) Qty: 10 0RF cetirizine 10 mg tablet 10 mg PO DAILY PRN (Reason: congestion ) Qty: 20 0RF guaifenesin [Mucinex] 600 mg tablet extended release 12hr 600 mg PO BID PRN (Reason: productive cough) Qty: 14 0RF ibuprofen 600 mg tablet 600 mg PO Q8H PRN (Reason: pain) Qty: 30 0RF acetaminophen [Tylenol] 325 mg tablet 650 mg PO Q6H PRN (Reason: pain) Qty: 30 0RF Paxlovid (EUA) 150 mg x 2- 100 mg tablet See Rx Instructions .ROUTE .COMPLEX Qty: 30 0RF Rx Instructions: take TWO 150 mg tablets of nirmatrelvir with ONE 100 mg tablet of ritonavir twice daily for 5 days no kidney disease, tested positive for covid on 08/14/21 No Action medroxyprogesterone 5 mg tablet 5 mg PO DAILY Qty: 30 6RF cyanocobalamin (vitamin B-12) 1,000 mcg/mL solution 1,000 mcg IM .COMPLEX Qty: 1 0RF Rx Instructions: 1,000 mcg IM Q2 weeks for 3 injections then once a month thereafter; estradiol 10 mcg tablet 10 mcg VAG .COMPLEX Qty: 22 0RF Rx Instructions: 10 mcg VAG Daily x 2 weeks then twice weekly thereafter; Referrals: Miscellaneous,Doctor, MD [Primary Care Provider] - Visit Report Forms: Patient Portal/API <Toma Fritz DO - Last Filed: 08/16/21 08:11> Cosign ED Attending Nickature Attestation: I was immediately available in the department for consultation. Documentation has been reviewed.
[2021-08-15] MEDS: ALBUTEROL HFA MDI 60 PUFF/8 GM INHALER INH (17:42)
--- NOTE | 2021-08-15 19:04 | PC.NURSE ---
discharge instructions gone over. pt very upset that she did not get an IV. pt verbalized loudly her distress and not being able to take medications while she is throwing up. tried to encourage pt to take the pills we offered, she states she has not thrown up since this morning, she has been able to tolerate some sips of rodney trell, she should try to take the medications that will help her feel better. Pt loudly verbalized her distress at not being able to drive to her preferred pharmacy [facility] since she does not feel well, not being able to ask her boyfriend to pick them up since he drives and Hummer and it uses too much gas, not being able to ask her other daughter since her car is on the brink of exploding and then her other daughter would lose her car and then her job and have to move in to her RV with her and she already has one daughter to lives there. pt very upset that she is going home and has laundry due to her and her daughter sweating through blankets and dishes from trying to make food they can eat but not being able to eat anything. Pt asked multiple times to calm down and not yell. when pt continued to yell, i left stating i would return when she has calmed down. charge nurse sent in to finish discharge teaching.
== END 2021-08-15 19:00 | disposition home or self-care (01) ==
PROVIDERS: Emergency Provider Nurse Practitioner Critical Care Medicine
DX: U07.1 COVID-19 (principal)
CPT/HCPCS: 71045; 87070; 87880; 94640; 99283; A9270

== ENCOUNTER 2022-04-10 09:08 | Emergency (ER) | payer OTHER, MEDICAID, SELFPAY ==
[2022-04-10 09:14] VITALS: BP 122/78; PULSE 90; RESP 14; TEMP 36.5; O2SAT 97; BMI 18.0
--- NOTE | 2022-04-10 09:19 | DI.RAD.S_ITS ---
PROCEDURE: XR CHEST 2V INDICATIONS: cough x 4 days TECHNIQUE: 2 views of the chest were acquired. COMPARISON: [facility], CR, XR CHEST 1V, 08/15/2021, 16:40. FINDINGS: Surgical changes and devices: None. Lungs and pleura: Pulmonary hyperinflation. Right upper lobe nodular density measures 8 mm superimposed over the end of the right 2nd rib. Lung and both pleural spaces clear. Mediastinum: Mediastinal contours are normal. Heart size is normal. Atherosclerotic vascular calcification noted in the aortic arch. Bones and chest wall: No suspicious bony abnormalities. Soft tissues appear unremarkable. IMPRESSION: 1. Hyperinflation without focal infiltrate. 2. Nodular 8 mm density projecting over the end of the right 2nd rib, new from the prior. Consider either short-term interval follow-up chest x-ray or CT evaluation Approved by: Heri Ulrich M.D. on 04/10/2022 at 9:43
[2022-04-10 09:56] VITALS: PULSE 86; RESP 18; O2SAT 97
[2022-04-10 10:00] VITALS: BP 104/63; PULSE 86; RESP 19; O2SAT 97
[2022-04-10 10:10] LABS: Influenza A - CEPHEID Flu A NEGATIVE (NEGATIVE); Influenza B - CEPHEID Flu B NEGATIVE (NEGATIVE)
[2022-04-10 10:13] LABS: COVID-19 CEPHEID 4-PLEX PCR POSITIVE (Negative); Respiratory Syncytial Virus POSITIVE (Negative)
--- NOTE | 2022-04-10 10:13 | ED_ITS ---
HPI - General Adult General Chief complaint: Upper Respiratory Symptoms Stated complaint: hernia is pushed out T-1, been coughing T-5 Time Seen by Provider: 04/10/22 09:31 Source: patient Mode of arrival: Ambulatory Limitations: no limitations History of Present Illness HPI narrative: 66-year-old female. History of COPD. Not a current smoker. His on inhalers at home. Is here for a productive cough for the past several days. She also states that she is been coughing so much that her umbilical hernia started hurting last evening. That has improved for today. She was concerned that maybe she had pneumonia. She did have some antibiotics at home which she took that were left over from prior infections. She denies chest pain. Related Data Previous Rx's Medication Instructions Recorded medroxyprogesterone 5 mg tablet 5 mg PO DAILY #30 tabs 11/21/17 cyanocobalamin (vitamin B-12) 1,000 mcg IM .COMPLEX #1 mL 11/30/17 1,000 mcg/mL injection solution estradiol 10 mcg vaginal tablet 10 mcg vaginal .COMPLEX #22 tabs 12/27/17 acetaminophen 325 mg tablet 650 mg PO Q6H PRN pain #30 tabs 08/15/21 (Tylenol) cetirizine 10 mg tablet 10 mg PO DAILY PRN congestion #20 08/15/21 tabs guaifenesin 600 mg tablet, 600 mg PO BID PRN productive cough 08/15/21 extended release 12 hr (Mucinex) #14 tabs ibuprofen 600 mg tablet 600 mg PO Q8H PRN pain #30 tabs 08/15/21 nirmatrelvir 300 mg (150 mg See Rx Instructions PO .COMPLEX 08/15/21 x2)-ritonavir 100 mg tablet,dose #30 tabs pack(EUA) (Paxlovid) ondansetron 4 mg disintegrating 4 mg PO Q6-8H PRN nausea and 08/15/21 tablet vomiting #10 tabs Allergies Allergy/AdvReac Type Severity Reaction Status Date / Time Sulfa (Sulfonamide Allergy Unknown Verified 04/10/22 09:19 Antibiotics) Review of Systems Constitutional Constitutional: Reports system reviewed and no additional complaints, except as documented Gastrointestinal Gastrointestinal: Reports system reviewed and no additional complaints, except as documented Genitourinary Genitourinary: Reports system reviewed and no additional complaints, except as documented Integumentary/Breasts Skin/Breast: Reports system reviewed and no additional complaints, except as documented Hematologic/Lymphatic On Anticoagulants: No Patient History Medical History (Updated 04/10/22 @ 11:09 by Alonzo Peralta DO) Abdominal wall hernia (~11/2016) Laceration of vagina (12/03/17) Surgical History History of section (03/04/89) History of section (10/10/86) History of vaginal surgery (12/03/17) Family History Father No problems noted. Mother Cancer Sister No problems noted. Social History Smoking Status: Former smoker Tobacco: How many years used: 13 second hand exposure: No alcohol intake: never substance use type: marijuana (smoke a tiny bit every day.) Smoking Status: Former smoker alcohol intake frequency: holidays/special occasions only Substance Use Type: marijuana Exam Initial Vital Signs Initial Vital Signs: Vital Signs Temperature 97.7 F 04/10/22 09:14 Pulse Rate 90 04/10/22 09:14 Respiratory Rate 14 04/10/22 09:14 Blood Pressure 122/78 04/10/22 09:14 Pulse Oximetry 97 04/10/22 09:14 Oxygen Delivery Method 04/10/22 09:14 Const General: cooperative and comfortable HENMT Head: normal to inspection and normocephalic Resp Effort & Inspection: normal respiratory effort Auscultation: rales and rhonchi Cardio Rate: regular rate GI Other: Small reducible umbilical hernia Skin General: no rashes or lesions noted Neuro General: patient alert, patient awake and moves all extremities Extrem General: normal to inspection Course Orders Ordered: ED Orders 04/10/22 09:19 XR chest 2V Stat 04/10/22 09:21 Covid-19 + FLU A/B + RSV - PCR Stat Vital Signs Vital signs: Vital Signs - 8 hr 04/10/22 09:14 04/10/22 09:56 04/10/22 10:00 Temperature 97.7 F Pulse Rate 90 86 Respiratory Rate 14 18 Blood Pressure 122/78 104/63 Pulse Oximetry 97 97 Oxygen Delivery Method Room Air 04/10/22 10:00 04/10/22 10:30 04/10/22 10:30 Temperature Pulse Rate 86 80 Respiratory Rate 19 18 Blood Pressure 101/62 Pulse Oximetry 97 96 Oxygen Delivery Method Medical Decision Making Lab Data Lab results reviewed: Yes I reviewed the patient's lab results. Labs: Lab Results 04/10/22 Range/Units 09:21 SARS-CoV-2 (PCR) Positive H (Negative) Influenza A (RT-PCR) Flu a negative (NEGATIVE) Influenza B (RT-PCR) Flu b negative (NEGATIVE) RSV (PCR) Positive A (Negative) Imaging Data Chest x-ray: Radiologist's Impression: [address] [address] XRay Report Signed Patient: Savannah Clement MR#: [id number] : 1955 Acct:[id number] Age/Sex: 66 / F Date of Service: 04/10/22 Loc: ED Accession Number: [id number] ?? Procedure: XR chest 2V Ordering Provider: Alonzo Peralta D.O. PROCEDURE:? XR CHEST 2V ? INDICATIONS:? cough x 4 days ? TECHNIQUE:? 2 views of the chest were acquired.? ? COMPARISON:? [facility], [place], XR CHEST 1V, 08/15/2021, 16:40. ? FINDINGS:? ? Surgical changes and devices:? None.? ? Lungs and pleura:? Pulmonary hyperinflation.? Right upper lobe nodular density measures 8 mm superimposed over the end of the right 2nd rib.? Lung and both pleural spaces clear. ? Mediastinum:? Mediastinal contours are normal.? Heart size is normal.? Atherosclerotic vascular calcification noted in the aortic arch. ? Bones and chest wall:? No suspicious bony abnormalities.? Soft tissues appear unremarkable.? ? IMPRESSION:? ? 1. Hyperinflation without focal infiltrate.? ? 2. Nodular 8 mm density projecting over the end of the right 2nd rib, new from the prior. ?Consider either short-term interval follow-up chest x-ray or CT evaluation ? ? ? Approved by: Heri Ulrich M.D. on 04/10/2022 at 9:43? MDM Narrative Medical decision making narrative: Chest x-ray does not show signs of pneumonia. She does have history of COPD but is not hypoxic. Her lungs are clear. She is not wheezing today. She is positive for COVID and RSV which is most likely the source of her symptoms today. I did discuss this with her. She has albuterol at home. There is no indication for antibiotics. We did discuss the use of her albuterol at home. Will hold on further workup for now. She was given return precautions. She expressed understanding and agreement. Discharge Plan Departure Patient Disposition: Home Clinical Impression: COVID-19, Upper respiratory infection Instructions: COVID-19 Activity Restrictions/Additional Instructions: I recommend that you continue to take all of your medications as directed. Use your albuterol as needed at home like we discussed. Contact your primary doctor for follow-up. Please follow all current CDC guidelines with regard to COVID-19 and quarantine. Return to the emergency department for new symptoms. Prescriptions: No Action medroxyprogesterone 5 mg tablet 5 mg PO DAILY Qty: 30 6RF cyanocobalamin (vitamin B-12) 1,000 mcg/mL solution 1,000 mcg IM .COMPLEX Qty: 1 0RF Rx Instructions: 1,000 mcg IM Q2 weeks for 3 injections then once a month thereafter; estradiol 10 mcg tablet 10 mcg VAG .COMPLEX Qty: 22 0RF Rx Instructions: 10 mcg VAG Daily x 2 weeks then twice weekly thereafter; ondansetron 4 mg tablet,disintegrating 4 mg PO Q6-8H PRN (Reason: nausea and vomiting) Qty: 10 0RF cetirizine 10 mg tablet 10 mg PO DAILY PRN (Reason: congestion ) Qty: 20 0RF guaifenesin [Mucinex] 600 mg tablet extended release 12hr 600 mg PO BID PRN (Reason: productive cough) Qty: 14 0RF ibuprofen 600 mg tablet 600 mg PO Q8H PRN (Reason: pain) Qty: 30 0RF acetaminophen [Tylenol] 325 mg tablet 650 mg PO Q6H PRN (Reason: pain) Qty: 30 0RF Paxlovid (EUA) 150 mg x 2- 100 mg tablet See Rx Instructions .ROUTE .COMPLEX Qty: 30 0RF Rx Instructions: take TWO 150 mg tablets of nirmatrelvir with ONE 100 mg tablet of ritonavir twice daily for 5 days no kidney disease, tested positive for covid on 08/14/21 Referrals: Sandhya Torres PA-C [Primary Care Provider] - Stand Alone Forms: Patient Portal/API
[2022-04-10 10:30] VITALS: BP 101/62; PULSE 80; RESP 18; O2SAT 96
[2022-04-10 11:00] VITALS: BP 104/66; PULSE 82; RESP 22; O2SAT 96
== END 2022-04-10 11:26 | disposition home or self-care (01) ==
PROVIDERS: Emergency Provider Emergency Medicine; PCP Physician Assistant
DX: U07.1 COVID-19 (principal); J06.9 Acute upper respiratory infection, unspecified; B97.4 Respiratory syncytial virus as the cause of diseases classified elsewhere
CPT/HCPCS: 0241U; 71046; 99283

== ENCOUNTER → 2022-06-03 10:50 | Outpatient (CLI) | payer OTHER, MEDICAID, SELFPAY ==
[2022-06-03 13:02] LABS: Hematocrit 38.6 % (36-46); Hemoglobin 13.3 g/dL (12.0-16.0)
--- NOTE | 2022-06-11 16:40 | P.PFT.S_ITS ---
Pulmonary Function Test Referral & Results Date Patient Seen: 06/03/22 Results: The spirometry demonstrates an FVC of 2.76 L which is 88% of predicted. The FEV1 was measured at 1.92 L which is 80% of predicted. The FEV1/FVC ratio was 70 which is 90% of predicted. Following the administration of bronchodilator there was a 10% improvement in FEV1 and a 52% improvement in FEF 25-75%. Lung volumes show an SVC of 2.83 L which is 96% of predicted. The diffusing capacity was measured at 21.31 which is 87% of predicted. The maximum voluntary ventilation was normal Interpretation: This study demonstrates mild obstructive lung disease based on minimal reduction FEV1. There is evidence of some benefit following bronchodilator administration particularly small airway flow as demonstrated by the improvement in the FEF 25- 75% as above Lung volumes are normal Diffusing capacity also normal Clinical correlation suggested
== END ==
PROVIDERS: PCP Physician Assistant; Referring Provider Internal Medicine Critical Care Medicine; Visit Provider Internal Medicine Critical Care Medicine
DX: R91.1 Solitary pulmonary nodule (principal); Z87.891 Personal history of nicotine dependence; J98.8 Other specified respiratory disorders
CPT/HCPCS: 36415; 85014; 85018; 94060; 94726; 94729

== ENCOUNTER 2022-10-10 15:23 | Emergency (ER) | payer OTHER, MEDICAID, SELFPAY ==
[2022-10-10] VITALS (10 sets, daily range): BP systolic 98–102; BP diastolic 54–60; PULSE 61–77; RESP 20–38; TEMP 36.6; O2SAT 97–100; BMI 18.0
--- NOTE | 2022-10-10 15:27 | DI.RAD.S_ITS ---
PROCEDURE: XR CHEST 1V INDICATIONS: chest pain TECHNIQUE: One view of the chest was acquired. COMPARISON: [facility], CT, CT CHEST WITHOUT CONTRAST, 04/20/2022, 14:20. [facility], CR, XR CHEST 2 VIEWS, 05/04/2022, 11:50. [facility], CR, XR CHEST 2 VIEWS, 04/15/2022, 9:01. FINDINGS: Surgical changes and devices: None. Lungs and pleura: Lungs are clear, note appear hyperexpanded. No pleural effusions or pneumothorax. Mediastinum: Mediastinal contours appear normal. Heart size is normal. Bones and chest wall: No suspicious bony lesions. S-shaped scoliotic curvature is seen. Age-appropriate bony degenerative changes are seen. Overlying soft tissues appear unremarkable. IMPRESSION: Hyperexpanded lungs, without an acute cardiopulmonary process identified. The previously identified right upper lobe lesion is not well seen on this study, potentially obscured by the cardiac lead. Dictated by: Rhys Stovall M.D. on 10/10/2022 at 15:16 Approved by: Rhys Stovall M.D. on 10/10/2022 at 15:17
[2022-10-10 15:39] LABS: Add Manual Diff / Slide Review NO; Basophils Absolute Auto 200 /uL (0-100); Basophils Percent Auto 1.4 % (0-2); Eosinophils Absolute Auto 300 /uL (0-450); Eosinophils Percent Auto 2.2 % (2-4); Hematocrit 40.9 % (36-46); Hemoglobin 13.5 g/dL (12.0-16.0); Lymphocytes Absolute Auto 4600 /uL (1100-4500); Lymphocytes Percent Auto 39.6 % (25-40); Mean Corpuscular HGB Conc 32.9 % (30-36); Mean Corpuscular Hemoglobin 28.9 PG (26-34); Mean Corpuscular Volume 87.8 fL (80-100); Monocytes Absolute Auto 600 /uL (0-900); Monocytes Percent Auto 4.9 % (3-14); Neutrophils Absolute Auto 6000 /uL (1500-7000); Neutrophils Percent Auto 51.9 % (50-75); Platelet Count 366 X10^3/uL (150-400); Red Blood Cell Count 4.66 X10^6/uL (4.0-5.2); Red Cell Distribution Width 13.2 % (11.6-14.8); White Blood Cell Count 11.6 X10^3/uL (4.5-11.0)
[2022-10-10] MEDS: ASPIRIN 81 MG CHEW TAB 324 MG PO (15:42)
--- NOTE | 2022-10-10 15:43 | ED.CHESTPAIN ---
HPI - Chest Pain General Chief Complaint: Chest Pain Stated Complaint: Chest tightness Time Seen by Provider: 10/10/22 15:26 Source: patient, family and EMS Mode of arrival: EMS Limitations: no limitations History of Present Illness HPI narrative: Patient is a 67-year-old female who was brought in by EMS for evaluation of an episode that occurred just a few minutes ago. [place] She states she was at her normal state health when she had a fairly sudden onset of left-sided chest discomfort. She would no palpitations at the time. No shortness of breath. She then felt like her legs for not going to support her and she felt like she was going to pass out. Family was beside her. It does appear that she lost consciousness for a very short period of time that she does not remember the events that her family describes. When EMS arrives she was alert oriented. They did find that she was hypotensive with sitting up and felt much better when she was lying down. At the time of my exam she was not having any symptoms. No fevers. Five months ago she did have a partial lung resection secondary to lung cancer. Patient denied any abdominal pain. No nausea or vomiting. No headache. No vision changes. Related Data Previous Rx's Medication Instructions Recorded medroxyprogesterone 5 mg tablet 5 mg PO DAILY #30 tabs 11/21/17 cyanocobalamin (vitamin B-12) 1,000 mcg IM .COMPLEX #1 mL 11/30/17 1,000 mcg/mL injection solution estradiol 10 mcg vaginal tablet 10 mcg vaginal .COMPLEX #22 tabs 12/27/17 acetaminophen 325 mg tablet 650 mg PO Q6H PRN pain #30 tabs 08/15/21 (Tylenol) cetirizine 10 mg tablet 10 mg PO DAILY PRN congestion #20 08/15/21 tabs guaifenesin 600 mg tablet, 600 mg PO BID PRN productive cough 08/15/21 extended release 12 hr (Mucinex) #14 tabs ibuprofen 600 mg tablet 600 mg PO Q8H PRN pain #30 tabs 08/15/21 nirmatrelvir 300 mg (150 mg See Rx Instructions PO .COMPLEX 08/15/21 x2)-ritonavir 100 mg tablet,dose #30 tabs pack (Paxlovid) ondansetron 4 mg disintegrating 4 mg PO Q6-8H PRN nausea and 08/15/21 tablet vomiting #10 tabs Allergies Allergy/AdvReac Type Severity Reaction Status Date / Time Sulfa (Sulfonamide Allergy Unknown Verified 10/10/22 15:34 Antibiotics) Review of Systems Review of Systems ROS Unobtainable: All systems reviewed & are unremarkable except as noted in HPI and below Patient History Medical History (Updated 10/10/22 @ 18:41 by Alonzo Peralta DO) Abdominal wall hernia (~11/2016) Laceration of vagina (12/03/17) Surgical History History of section (03/04/89) History of section (10/10/86) History of vaginal surgery (12/03/17) Family History Father No problems noted. Mother Cancer Sister No problems noted. Social History Smoking Status: Former smoker Tobacco: How many years used: 13 second hand exposure: No alcohol intake: never substance use type: marijuana (smoke a tiny bit every day.) Smoking Status: Former smoker alcohol intake frequency: holidays/special occasions only Substance Use Type: marijuana Exam Initial Vital Signs Initial Vital Signs: Vital Signs Temperature 97.8 F 10/10/22 15:29 Pulse Rate 65 10/10/22 15:29 Respiratory Rate 20 10/10/22 15:29 Blood Pressure 102/58 L 10/10/22 15:29 Pulse Oximetry 99 10/10/22 15:29 Oxygen Delivery Method Room Air 10/10/22 15:29 Const General: cooperative, comfortable and No ill appearing [facility] Head: normal to inspection and normocephalic Chest Chest: normal inspection of the chest and No crepitus Resp Effort & Inspection: normal respiratory effort Auscultation: clear to auscultation bilaterally Cardio Rate: regular rate Rhythm: regular rhythm GI Inspection: normal to inspection and non-distended Skin General: no rashes or lesions noted Lesions: no lesions Neuro General: patient alert, patient awake, patient oriented x3 and moves all extremities Speech: speech normal Extrem General: normal to inspection and capillary refill normal Scores GCS Christie coma scale eye opening: Spontaneous [place] coma scale verbal response: Orientated [place] coma scale motor response: Obey commands [place] coma scale total score: 15 HEART Score Heart Score history: Slightly Suspicious Heart Score EKG: Normal Heart Score Age: > or = 65 years old Heart Score risk factors: 1-2 risk factors Heart Score troponin: < or = to normal limit Heart Score Total: 3 Course Orders Ordered: ED Orders 10/10/22 15:25 Complete Blood Count AUTO DIFF Stat Comprehensive Metabolic Panel Stat Ethanol (ETOH) Stat Lipase Stat Troponin & CK Cardiac Panel Stat 10/10/22 15:27 XR chest 1V Stat 10/10/22 15:29 D Dimer Stat 10/10/22 15:37 EKG-12 Lead Stat 10/10/22 17:40 Troponin & CK Cardiac Panel Stat Discontinued Medications Aspirin (Aspirin 81 Mg Chew Tab) 324 mg PO NOW ONE Stop: 10/10/22 15:29 Last Admin: 10/10/22 15:42 Dose: 324 mg Documented By: NEEL Sodium Chloride (Normal Saline 0.9%) 1,000 mls @ 1,000 mls/hr IV BOLUS ONE Stop: 10/10/22 16:25 Last Infusion: 10/10/22 17:58 Dose: 0 mls/hr Documented By: Admin: 10/10/22 15:44 Dose: 1,000 mls/hr Documented By: NEEL Vital Signs Vital signs: Vital Signs - 8 hr 10/10/22 15:29 10/10/22 15:32 10/10/22 15:33 Temperature 97.8 F Pulse Rate 65 65 67 Respiratory Rate 20 20 36 H Blood Pressure 102/58 L Pulse Oximetry 99 99 99 Oxygen Delivery Method Room Air 10/10/22 15:33 10/10/22 16:00 10/10/22 16:30 Temperature Pulse Rate 63 65 Respiratory Rate 32 H 29 H Blood Pressure 102/58 L Pulse Oximetry 100 97 Oxygen Delivery Method 10/10/22 16:58 10/10/22 16:58 10/10/22 17:00 Temperature Pulse Rate 62 61 Respiratory Rate 38 H 37 H Blood Pressure 99/60 Pulse Oximetry 99 100 Oxygen Delivery Method 10/10/22 17:30 10/10/22 18:00 Temperature Pulse Rate 62 71 Respiratory Rate 33 H 28 H Blood Pressure Pulse Oximetry 100 97 Oxygen Delivery Method MDM - Chest Pain Lab Data Attestation: I reviewed the patient's lab results. 10/10/22 15:25 10/10/22 15:25 Labs: Lab Results 10/10/22 10/10/22 10/10/22 Range/Units 15:25 15:25 15:29 WBC 11.6 H (4.5-11.0) X10^3/uL RBC 4.66 (4.0-5.2) X10^6/uL Hgb 13.5 (12.0-16.0) g/dL Hct 40.9 (36-46) % MCV 87.8 (80-100) fL MCH 28.9 (26-34) PG MCHC 32.9 (30-36) % RDW 13.2 (11.6-14.8) % Plt Count 366 (150-400) X10^3/uL Neut % (Auto) 51.9 (50-75) % Lymph % (Auto) 39.6 (25-40) % Rock % (Auto) 4.9 (3-14) % Eos % (Auto) 2.2 (2-4) % Baso % (Auto) 1.4 (0-2) % Neut # (Auto) 6000 (8936-0549) /uL Lymph # (Auto) 4600 H (5884-1861) /uL Rock # (Auto) 600 (0-900) /uL Eos # (Auto) 300 (0-450) /uL Baso # (Auto) 200 H (0-100) /uL D-Dimer 380 (<500) ng/ml Sodium 136 L (137-145) mmol/L Potassium 3.8 (3.4-5.1) mmol/L Chloride 101 (98-107) mmol/L Carbon Dioxide 25 (22-32) mmol/L BUN 11 (7-17) mg/dL Creatinine 0.90 (0.52-1.04) mg/dL Estimated GFR > 60 (>60) mL/min BUN/Creatinine Ratio 12.2 (6-22) Glucose 105 (80-110) mg/dL Calcium 9.3 (8.4-10.2) mg/dL Total Bilirubin 0.4 (0.2-1.3) mg/dL AST 31 (14-36) IU/L ALT 20 (<35) IU/L Alkaline Phosphatase 104 (38-126) U/L Total Creatine Kinase 67 (30-135) U/L Troponin I < 0.012 (0.01-0.034) ng/mL Total Protein 8.2 (6.3-8.2) g/dL Albumin 4.5 (3.5-5.0) g/dL Globulin 3.7 (1.7-4.1) g/dL Albumin/Globulin Ratio 1.2 (1.0-2.8) Lipase 83 (23-300) U/L Ethyl Alcohol < 10 ( - 10) mg/dL 10/10/22 Range/Units 17:40 WBC (4.5-11.0) X10^3/uL RBC (4.0-5.2) X10^6/uL Hgb (12.0-16.0) g/dL Hct (36-46) % MCV (80-100) fL MCH (26-34) PG MCHC (30-36) % RDW (11.6-14.8) % Plt Count (150-400) X10^3/uL Neut % (Auto) (50-75) % Lymph % (Auto) (25-40) % Rock % (Auto) (3-14) % Eos % (Auto) (2-4) % Baso % (Auto) (0-2) % Neut # (Auto) (7530-3636) /uL Lymph # (Auto) (6414-8242) /uL Rock # (Auto) (0-900) /uL Eos # (Auto) (0-450) /uL Baso # (Auto) (0-100) /uL D-Dimer (<500) ng/ml Sodium (137-145) mmol/L Potassium (3.4-5.1) mmol/L Chloride (98-107) mmol/L Carbon Dioxide (22-32) mmol/L BUN (7-17) mg/dL Creatinine (0.52-1.04) mg/dL Estimated GFR (>60) mL/min BUN/Creatinine Ratio (6-22) Glucose (80-110) mg/dL Calcium (8.4-10.2) mg/dL Total Bilirubin (0.2-1.3) mg/dL AST (14-36) IU/L ALT (<35) IU/L Alkaline Phosphatase (38-126) U/L Total Creatine Kinase 61 (30-135) U/L Troponin I < 0.012 (0.01-0.034) ng/mL Total Protein (6.3-8.2) g/dL Albumin (3.5-5.0) g/dL Globulin (1.7-4.1) g/dL Albumin/Globulin Ratio (1.0-2.8) Lipase (23-300) U/L Ethyl Alcohol ( - 10) mg/dL Imaging Data Chest x-ray: Radiologist's Impression: PROCEDURE:? XR CHEST 1V ? INDICATIONS:? chest pain ? TECHNIQUE:? One view of the chest was acquired.? ? COMPARISON:? [facility], CT, CT CHEST WITHOUT CONTRAST, 04/20/2022, 14:20.? [facility], CR, XR CHEST 2 VIEWS, 05/04/2022, 11:50.? [facility], CR, XR CHEST 2 VIEWS, 04/15/2022, 9:01. ? FINDINGS:? ? Surgical changes and devices:? None.? ? Lungs and pleura:? Lungs are clear, note appear hyperexpanded.? No pleural effusions or pneumothorax.? ? Mediastinum:? Mediastinal contours appear normal.? Heart size is normal.? ? Bones and chest wall:? No suspicious bony lesions.? S-shaped scoliotic curvature is seen. ?Age-appropriate bony degenerative changes are seen.? ? Overlying soft tissues appear unremarkable.? ? ? IMPRESSION:? ? Hyperexpanded lungs, without an acute cardiopulmonary process identified. ? The previously identified right upper lobe lesion is not well seen on this study, potentially obscured by the cardiac lead ECG Data Attestation: I personally reviewed and interpreted this ECG as follows: Interpretation: Sinus bradycardia Ventricular rate of 59 Normal axis Normal QRS Normal QTC No ST T wave changes MDM Narrative Medical decision making narrative: EKG is nonischemic. 2- troponins. D-dimer is negative. Chest x-ray is unremarkable. By the time the patient arrived here she states she felt much better. She continues to have no symptoms. She has a low risk heart score. Unsure of the exact etiology of the patient's symptoms but low suspicion for CVA or TIA or troponin. Recommend that you contact your primary doctor for follow-up. Return to the emergency department for new or worsening symptoms. Discharge Plan Departure Patient Disposition: Home Clinical Impression: Atypical chest pain Instructions: DI for Atypical Chest Pain Activity Restrictions/Additional Instructions: I recommend that you continue to take all of your medications as directed. Contact your primary doctor for a follow-up. Return to the emergency department for new or worsening symptoms. Prescriptions: No Action medroxyprogesterone 5 mg tablet 5 mg PO DAILY Qty: 30 6RF cyanocobalamin (vitamin B-12) 1,000 mcg/mL solution 1,000 mcg IM .COMPLEX Qty: 1 0RF Rx Instructions: 1,000 mcg IM Q2 weeks for 3 injections then once a month thereafter; estradiol 10 mcg tablet 10 mcg VAG .COMPLEX Qty: 22 0RF Rx Instructions: 10 mcg VAG Daily x 2 weeks then twice weekly thereafter; ondansetron 4 mg tablet,disintegrating 4 mg PO Q6-8H PRN (Reason: nausea and vomiting) Qty: 10 0RF cetirizine 10 mg tablet 10 mg PO DAILY PRN (Reason: congestion ) Qty: 20 0RF guaifenesin [Mucinex] 600 mg tablet extended release 12hr 600 mg PO BID PRN (Reason: productive cough) Qty: 14 0RF ibuprofen 600 mg tablet 600 mg PO Q8H PRN (Reason: pain) Qty: 30 0RF acetaminophen [Tylenol] 325 mg tablet 650 mg PO Q6H PRN (Reason: pain) Qty: 30 0RF Paxlovid 150 mg x 2- 100 mg tablet See Rx Instructions .ROUTE .COMPLEX Qty: 30 0RF Rx Instructions: take TWO 150 mg tablets of nirmatrelvir with ONE 100 mg tablet of ritonavir twice daily for 5 days no kidney disease, tested positive for covid on 08/14/21 Referrals: Sandhya Torres PA-C [Primary Care Provider] - Stand Alone Forms: Patient Portal/API
[2022-10-10] MEDS: SODIUM CHLORIDE 0.9% 1,000 ML 1000 ML IV (15:44)
[2022-10-10 15:45] LABS: Alanine Aminotransferase 20 IU/L (<35); Albumin 4.5 g/dL (3.5-5.0); Albumin Globulin Ratio 1.2 (1.0-2.8); Alkaline Phosphatase 104 U/L (38-126); Aspartate Aminotransferase 31 IU/L (14-36); BUN Creatinine Ratio 12.2 (6-22); Bilirubin Total 0.4 mg/dL (0.2-1.3); Blood Urea Nitrogen 11 mg/dL (7-17); Calcium 9.3 mg/dL (8.4-10.2); Carbon Dioxide 25 mmol/L (22-32); Chloride 101 mmol/L (98-107); Creatine Kinase 67 U/L (30-135); Estimated Glomerular Filt Rate > 60 mL/min (>60); Ethanol (ETOH) < 10 mg/dL; Globulin 3.7 g/dL (1.7-4.1); Glucose 105 mg/dL (80-110); HEMOLYSIS 38 (0-50); Lipase 83 U/L (23-300); Potassium 3.8 mmol/L (3.4-5.1); Sodium 136 mmol/L (137-145); Total Protein 8.2 g/dL (6.3-8.2)
[2022-10-10 15:51] LABS: D Dimer 380 ng/ml (<500)
[2022-10-10 15:56] LABS: Troponin I < 0.012 ng/mL (0.01-0.034)
[2022-10-10 17:59] LABS: Creatine Kinase 61 U/L (30-135)
[2022-10-10 18:12] LABS: Troponin I < 0.012 ng/mL (0.01-0.034)
== END 2022-10-10 17:00 | disposition home or self-care (01) ==
PROVIDERS: Emergency Provider Emergency Medicine; PCP Physician Assistant
DX: R07.89 Other chest pain (principal)
CPT/HCPCS: 36415; 71045; 80053; 80320; 82550; 83690; 84484; 85025; 85379; 93005; 93010; 99284

== ENCOUNTER 2023-04-11 15:18 | Emergency (ER) | payer OTHER, MEDICAID, SELFPAY ==
[2023-04-11] VITALS (18 sets, daily range): BP systolic 88–113; BP diastolic 59–74; PULSE 84–104; RESP 17–31; TEMP 35.9; O2SAT 93–97; BMI 18.0
--- NOTE | 2023-04-11 15:42 | DI.RAD.S_ITS ---
PROCEDURE: XR CHEST 1V INDICATIONS: Shortness of breath TECHNIQUE: One view of the chest was acquired. COMPARISON: [facility], CR, XR CHEST 1V, 10/10/2022, 15:37. FINDINGS: Surgical changes and devices: None. Lungs and pleura: Large right pleural effusion. Moderate right apical airspace opacity. Mediastinum: Mediastinal contours appear normal. Heart size is normal. Bones and chest wall: No suspicious bony lesions. Overlying soft tissues appear unremarkable. IMPRESSION: 1. Large right pleural effusion. 2. Right apical opacity, possibly indicating atelectasis, neoplasm, or pneumonia. Dictated by: Alethea Hager M.D. on 04/11/2023 at 16:23 Approved by: Alethea Hager M.D. on 04/11/2023 at 16:24
[2023-04-11 15:59] LABS: Add Manual Diff / Slide Review NO; Basophils Absolute Auto 100 /uL (0-100); Basophils Percent Auto 0.5 % (0-2); Eosinophils Absolute Auto 400 /uL (0-450); Eosinophils Percent Auto 3.6 % (2-4); Hematocrit 38.1 % (36-46); Hemoglobin 13.1 g/dL (12.0-16.0); Lymphocytes Absolute Auto 1900 /uL (1100-4500); Lymphocytes Percent Auto 16.9 % (25-40); Mean Corpuscular HGB Conc 34.2 % (30-36); Mean Corpuscular Hemoglobin 29.2 PG (26-34); Mean Corpuscular Volume 85.1 fL (80-100); Monocytes Absolute Auto 800 /uL (0-900); Monocytes Percent Auto 7.3 % (3-14); Neutrophils Absolute Auto 8200 /uL (1500-7000); Neutrophils Percent Auto 71.7 % (50-75); Platelet Count 583 X10^3/uL (150-400); Red Blood Cell Count 4.48 X10^6/uL (4.0-5.2); Red Cell Distribution Width 13.7 % (11.6-14.8); White Blood Cell Count 11.5 X10^3/uL (4.5-11.0)
[2023-04-11 16:11] LABS: Alanine Aminotransferase 33 IU/L (<35); Albumin 3.7 g/dL (3.5-5.0); Albumin Globulin Ratio 1.1 (1.0-2.8); Alkaline Phosphatase 187 U/L (38-126); Aspartate Aminotransferase 43 IU/L (14-36); BUN Creatinine Ratio 14.8 (6-22); Bilirubin Total 0.5 mg/dL (0.2-1.3); Blood Urea Nitrogen 8 mg/dL (7-17); Calcium 9.4 mg/dL (8.4-10.2); Carbon Dioxide 27 mmol/L (22-32); Chloride 99 mmol/L (98-107); Estimated Glomerular Filt Rate > 60 mL/min (>60); Globulin 3.5 g/dL (1.7-4.1); Glucose 123 mg/dL (80-110); Potassium 5.1 mmol/L (3.4-5.1); Sodium 130 mmol/L (137-145); Total Protein 7.2 g/dL (6.3-8.2)
[2023-04-11 16:12] LABS: Lactate (Lactic Acid) 0.8 mmol/L (0.7-2.1)
[2023-04-11 16:17] LABS: HEMOLYSIS 67 (0-50)
[2023-04-11] MEDS: MORPHINE 2 MG/ML INJ IV (16:22)
[2023-04-11 16:24] LABS: NT-proBNP (BNP-Adult 18+) 484 pg/mL (<125); Troponin I < 0.012 ng/mL (0.01-0.034)
--- NOTE | 2023-04-11 16:30 | PC.NURSE ---
Pt BP dropped (see MAR) after receiving analgesia medication. Pt placed in trandelenburged position and BP increased. Pt denies dizziness or lightheaded.
[2023-04-11 16:38] LABS: Influenza A - CEPHEID Flu A NEGATIVE (NEGATIVE); Influenza B - CEPHEID Flu B NEGATIVE (NEGATIVE); Respiratory Syncytial Virus Negative (Negative)
[2023-04-11 16:40] LABS: COVID-19 CEPHEID 4-PLEX PCR Negative (Negative)
--- NOTE | 2023-04-11 17:15 | ED_ITS ---
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 Patient was found to have recurrence had thoracentesis found to have fluid that had adenocarcinoma and pleural fluid this was followed by PET scan in May of 2022 which showed a primary tumor but without any other uptake. Patient had a repeat PET scan in March which shows metastatic lesions throughout the lungs, lymph nodes and possibly in the brain as well. Patient complains of shortness of breath, orthopnea, she complains of pain but mostly in her arm where her IV. Patient states no fevers. She has had some right-sided chest pain radiating towards her back. No nausea or vomiting. No changes with bowel movements she denies any issues with urination. She is felt generally weak has been able to get to the bathroom but was difficult to get out of the bathtub. She states her weight has been stable. She states she was seeing Dr. Oropeza who was her surgeon and who has referred her to Medical Oncology at [facility] where she was being seen but she has not actually established. Her only medications are vitamins currently B12 and vitamin-D. She was on Forteo for osteoporosis in the past. States only surgery before was her lung resection. She smoked from age [age], denies any alcohol or recreational drugs. Related Data Home Medications Medication Instructions Recorded Confirmed albuterol sulfate 90 mcg/actuation 2 inh inhalation Q6HR PRN Wheezing 04/11/23 04/11/23 aerosol inhaler ergocalciferol (vitamin D2) 1,250 1,250 mcg PO DAILY 04/11/23 04/11/23 mcg (50,000 unit) capsule Previous Rx's Medication Instructions Recorded acetaminophen 325 mg tablet 650 mg (2 x 325 mg) PO Q6H PRN 08/15/21 (Tylenol) pain #30 tabs oxycodone 5 mg tablet 5 mg PO Q6H PRN pain #20 tabs 04/11/23 Allergies Allergy/AdvReac Type Severity Reaction Status Date / Time Sulfa (Sulfonamide Allergy Unknown Verified 04/11/23 18:38 Antibiotics) Review of Systems <Toma Fritz DO - Last Filed: 04/12/23 09:47> Review of Systems ROS Unobtainable: All systems reviewed & are unremarkable except as noted in HPI and below Patient History <Toma Fritz DO - Last Filed: 04/12/23 09:47> Medical History (Updated 04/11/23 @ 19:26 by Toma Fritz DO) Laceration of vagina (12/03/17) Abdominal wall hernia (~11/2016) Surgical History History of vaginal surgery (12/03/17) History of section (10/10/86) History of section (03/04/89) Family History Father No problems noted. Mother Cancer Sister No problems noted. Social History Smoking Status: Former smoker Tobacco: How many years used: 13 second hand exposure: No alcohol intake: never substance use type: marijuana (smoke a tiny bit every day.) Smoking Status: Former smoker alcohol intake frequency: holidays/special occasions only Substance Use Type: does not use Exam <Toma Fritz DO - Last Filed: 04/12/23 09:47> Narrative Exam Narrative: GENERAL: Alert and oriented x three, cachectic female in [id number] distress HEENT: Head normocephalic, atraumatic, EOMI, pupils reactive, face symmetric, moist mucous membranes NECK: Supple, full range of motion CARDIOVASCULAR: Regular rate and rhythm without murmurs, rubs or gallops. No JVD. No edema bilateral lower extremities. RESPIRATORY: Breath sounds decreased on the right, no wheezes rales or rhonchi. No tachypnea or accessory muscle use. ABDOMEN: Soft, nontender. Normoactive bowel sounds all 4 quadrants. No guarding or rebound, rigidity, no mass : No CVA tenderness EXTREMITIES: Normal range of motion, no clubbing or edema. Neurovascularly intact NEUROLOGICAL: Cranial nerves II through XII grossly intact. Moving all extremities SKIN: Warm, dry, no petechiae, no rashes or lesions. Initial Vital Signs Initial Vital Signs: Vital Signs Temperature 96.6 F L 04/11/23 15:22 Pulse Rate 99 H 04/11/23 15:22 Respiratory Rate 20 04/11/23 15:22 Blood Pressure 90/59 L 04/11/23 15:22 Pulse Oximetry 97 04/11/23 15:22 Oxygen Delivery Method Room Air 04/11/23 15:22 <Nena Golden DO - Last Filed: 04/12/23 01:49> Initial Vital Signs Initial Vital Signs: Vital Signs Temperature 96.6 F L 04/11/23 15:22 Pulse Rate 99 H 04/11/23 15:22 Respiratory Rate 20 04/11/23 15:22 Blood Pressure 90/59 L 04/11/23 15:22 Pulse Oximetry 97 04/11/23 15:22 Oxygen Delivery Method Room Air 04/11/23 15:22 Course <Toma Fritz DO - Last Filed: 04/12/23 09:47> Orders Ordered: Discontinued Medications Sodium Chloride (Normal Saline 0.9%) 500 mls @ 1,000 mls/hr IV BOLUS ONE Stop: 04/11/23 17:17 Last Infusion: 04/11/23 20:00 Dose: Infused Documented By: Admin: 04/11/23 17:20 Dose: 1,000 mls/hr Documented By: DILMA Morphine Sulfate (Morphine 2 Mg/Ml Inj) 2 mg IV NOW ONE Stop: 04/11/23 16:15 Last Admin: 04/11/23 16:22 Dose: 2 mg Documented By: RB Vital Signs Vital signs: Vital Signs - 8 hr 04/11/23 18:15 04/11/23 18:30 04/11/23 18:45 Pulse Rate 93 H 88 86 Respiratory Rate 26 H 25 H 30 H Pulse Oximetry 94 93 94 04/11/23 19:00 04/11/23 19:17 04/11/23 19:30 Pulse Rate 86 104 H 89 Respiratory Rate 25 H 27 H Pulse Oximetry 95 96 04/11/23 19:45 Pulse Rate 94 H Respiratory Rate 27 H Pulse Oximetry <DO Nava Cali Last Filed: 04/12/23 01:49> Orders Ordered: Discontinued Medications Sodium Chloride (Normal Saline 0.9%) 500 mls @ 1,000 mls/hr IV BOLUS ONE Stop: 04/11/23 17:17 Last Infusion: 04/11/23 20:00 Dose: Infused Documented By: Admin: 04/11/23 17:20 Dose: 1,000 mls/hr Documented By: DILMA Morphine Sulfate (Morphine 2 Mg/Ml Inj) 2 mg IV NOW ONE Stop: 04/11/23 16:15 Last Admin: 04/11/23 16:22 Dose: 2 mg Documented By: RB Vital Signs Vital signs: Vital Signs - 8 hr 04/11/23 18:15 04/11/23 18:30 04/11/23 18:45 Pulse Rate 93 H 88 86 Respiratory Rate 26 H 25 H 30 H Pulse Oximetry 94 93 94 04/11/23 19:00 04/11/23 19:17 04/11/23 19:30 Pulse Rate 86 104 H 89 Respiratory Rate 25 H 27 H Pulse Oximetry 95 96 04/11/23 19:45 Pulse Rate 94 H Respiratory Rate 27 H Pulse Oximetry MDM - SOB/Dyspnea <Toma Fritz, DO - Last Filed: 04/12/23 09:47> Lab Data 04/11/23 15:40 04/11/23 15:40 Labs: Lab Results 04/11/23 04/11/23 Range/Units 15:40 15:50 WBC 11.5 H (4.5-11.0) X10^3/uL RBC 4.48 (4.0-5.2) X10^6/uL Hgb 13.1 (12.0-16.0) g/dL Hct 38.1 (36-46) % MCV 85.1 (80-100) fL MCH 29.2 (26-34) PG MCHC 34.2 (30-36) % RDW 13.7 (11.6-14.8) % Plt Count 583 H (150-400) X10^3/uL Neut % (Auto) 71.7 (50-75) % Lymph % (Auto) 16.9 L (25-40) % Nelson % (Auto) 7.3 (3-14) % Eos % (Auto) 3.6 (2-4) % Baso % (Auto) 0.5 (0-2) % Neut # (Auto) 8200 H (0381-5953) /uL Lymph # (Auto) 1900 (8557-3012) /uL Nelson # (Auto) 800 (0-900) /uL Eos # (Auto) 400 (0-450) /uL Baso # (Auto) 100 (0-100) /uL PT 12.0 (9.4-12.5) SECONDS INR 1.0 (0.9-1.3) Sodium 130 L (137-145) mmol/L Potassium 5.1 (3.4-5.1) mmol/L Chloride 99 (98-107) mmol/L Carbon Dioxide 27 (22-32) mmol/L BUN 8 (7-17) mg/dL Creatinine 0.54 (0.52-1.04) mg/dL Estimated GFR > 60 (>60) mL/min BUN/Creatinine Ratio 14.8 (6-22) Glucose 123 H (80-110) mg/dL Lactate 0.8 (0.7-2.1) mmol/L Calcium 9.4 (8.4-10.2) mg/dL Total Bilirubin 0.5 (0.2-1.3) mg/dL AST 43 H (14-36) IU/L ALT 33 (<35) IU/L Alkaline Phosphatase 187 H (38-126) U/L Troponin I < 0.012 (0.01-0.034) ng/mL NT-Pro-B Natriuret Pep 484 H (<125) pg/mL Total Protein 7.2 (6.3-8.2) g/dL Albumin 3.7 (3.5-5.0) g/dL Globulin 3.5 (1.7-4.1) g/dL Albumin/Globulin Ratio 1.1 (1.0-2.8) SARS-CoV-2 (PCR) Negative (Negative) Influenza A (RT-PCR) Flu a negative (NEGATIVE) Influenza B (RT-PCR) Flu b negative (NEGATIVE) RSV (PCR) Negative (Negative) Imaging Data Chest x-ray: Radiologist's Impression: Savannah Clement??67??F??1955 ? Allergy/Adv: Sulfa (Sulfonamide Antibiotics) (More??) Close Chest X-Ray (Signed) Alethea Hager - 04/11/23 Chest X-Ray (Signed) Rhys Stovall - 10/10/22 PFT Result 06/03/22 Chest X-Ray (Signed) Ulrich,Heri - 04/10/22 Chest X-Ray (Signed) Rhys Stovall - 08/15/21 Chest X-Ray (Cancelled) 08/15/[address] (Signed) Luzma Coughlin - 07/20/21 Pelvis Ultrasound (Signed) Rhys Stovall - 02/03/18 Finger X-Ray (Signed) Tripp Hartley - 01/09/18 Hand X-Ray (Signed) Arron Mandujano - 11/21/17 Launch?[address] [address] XRay Report Signed Patient: Savannah Clement MR#: [id number] : 1955 Acct:[id number] Age/Sex: 67 / F Date of Service: 04/11/23 Loc: ED Accession Number: [id number] Procedure: XR chest 1V Ordering Provider: Toma Fritz D.O. PROCEDURE: XR CHEST 1V INDICATIONS: Shortness of breath TECHNIQUE: One view of the chest was acquired. COMPARISON: [facility], , XR CHEST 1V, 10/10/2022, 15:37. FINDINGS: Surgical changes and devices: None. Lungs and pleura: Large right pleural effusion. Moderate right apical airspace opacity. Mediastinum: Mediastinal contours appear normal. Heart size is normal. Bones and chest wall: No suspicious bony lesions. Overlying soft tissues appear unremarkable. IMPRESSION: 1. Large right pleural effusion. 2. Right apical opacity, possibly indicating atelectasis, neoplasm, or pneumonia. Dictated by: Alethea Hager M.D. on 04/11/2023 at 16:23 Approved by: Alethea Hager M.D. on 04/11/2023 at 16:24 CT scan - chest: Radiologist's Impression: Close Chest CTA (Signed) Robles Manuel - 04/11/23 Chest X-Ray (Signed) Alethea Hager - 04/11/23 Launch?[address] [address] [address] Scan Report Signed Patient: Savannah Clement MR#: [id number] : 1955 Acct:[id number] Age/Sex: 67 / F Date of Service: 04/11/23 Loc: ED Accession Number: [id number] Procedure: CT angio chest PE protocol Ordering Provider: Toma Fritz D.O. PROCEDURE: CT ANGIO CHEST PE PROTOCOL INDICATIONS: sob, known cancer, worsening, effusion, r/o pe TECHNIQUE: After the administration of intravenous contrast, 2 mm thick sections acquired from the pulmonary apices to the posterior costophrenic angles. 3-dimensional maximum intensity projection (MIP) coronal and sagittal reformats were then acquired through the thorax. For radiation dose reduction, the following was used: automated exposure control, adjustment of mA and/or kV according to patient size. COMPARISON: [facility], CT, CT CHEST WITHOUT CONTRAST, 04/20/2022, 14:20. FINDINGS: Image quality: Diagnostic. Pulmonary arteries: Pulmonary arteries are normal in size, and demonstrate no intraluminal filling defects to suggest central pulmonary embolism. The proximal right pulmonary arteries are compressed but patent. Lower Neck: No enlarged lymph nodes. Thyroid: No thyroid nodules which require sonographic follow up, per consensus guidelines. Axillae: No enlarged lymph nodes. Chest Wall: Unremarkable. Bones: Unremarkable. Lungs and Pleura: Postsurgical changes from right upper lobe wedge resection. Large right pleural effusion. Atelectasis of the right lower middle lobes and majority of the right upper lobe. Hypoattenuation surrounding the wedge resection sutures extending to the hilum with a sales representative business courses component measuring 3.2 x 3.8 centimeters and 10 centimeters in the craniocaudal dimension. Portion of the right upper lobe is aerated and demonstrates diffuse ground-glass and consolidation. Paraseptal emphysematous changes are seen within the left upper lobe. Ground-glass is seen within the posterior left upper lobe, likely infectious. Subpleural nodule within the left lower lobe measuring 5 millimeters (5/108). Additional 5 millimeter subpleural nodule in the posterior left lower lobe (5/90). Heart: Heart size is normal. Small to moderate pericardial effusion. Thoracic Vessels: No aortic aneurysm. Mediastinum and Kiersten: Multiple prominent lymph nodes. Small fluid within the mediastinum. Esophagus: No wall thickening. No hiatal hernia. Upper Abdomen: Prominent upper abdominal lymph nodes are noted. Otherwise, no upper abdomen solid organs and bowel loops appear normal. IMPRESSION: 1. No pulmonary embolus. 2. Large right pleural effusion. Atelectasis of majority of the right lower and middle lobes. Hypoattenuating lesion within the right upper lobe extending to the hilum with sales representative business courses measurement of 3.2 x 3.8 centimeters and 10 centimeters in the craniocaudal dimension. Pulmonary arteries are compressed as they pass through this masslike lesion. Findings are concerning for mass. Infection is also in the differential. Recommend correlation with wedge resection pathology. 3. Within the aerated right upper lobe, there is ground-glass and consolidation. Ground-glass within the posterior left upper lobe. Findings are concerning for infection. 4. 5 millimeter left lower lobe subpleural nodules are noted. 5. Prominent mediastinal lymph nodes, may be reactive. Prominent upper abdominal lymph nodes are noted, nonspecific. Dictated by: Robles Manuel M.D. on 04/11/2023 at 18:32 Approved by: Robles Manuel M.D. on 04/11/2023 at 18:42 ECG Data Attestation: I personally reviewed and interpreted this ECG as follows: Interpretation: Sinus rhythm frequent PVCs rate of 94 IL 118 QRS 88 QTC of 450. Occasional PVC but no acute ST elevation or depression noted. [facility] Narrative Medical decision making narrative: 67-year-old female comes in with complaint of shortness of breath, patient has known metastatic lung cancer that is fairly new and progressive. Patient has not been hypoxic blood pressure has been low but she states she runs in the lower end. Patient labs overall show white count 11.5 normal hemoglobin platelets of 583. Sodium 130, potassium 5 1, BUN 8 with a creatinine of 0.5 far glucose of 123- lactate AST is 43 with an alk-phos of 187 negative troponin and a BNP of only 484. Chest x-ray shows a large right pleural effusion, patient is quite reluctant from thoracentesis. She has had once before states it was quite uncomfortable and she did not tolerate it well and it seemed to make her breathing worse. CT angio of the chest was obtained in order to rule out PE. CT shows a large right pleural effusion, no pulmonary emboli, patient does have masses present. Possible infection in the upper portion. Patient is very reluctant to have thoracentesis we did discuss it would likely make her feel better even with ambulation her oxygen does not drop below 94% although she feels very winded. Offered observation, thoracentesis. Patient is establishing with Oncology. Discussed she may return at any time. <Nena Chantel, DO - Last Filed: 04/12/23 01:49> Lab Data Labs: Lab Results 04/11/23 04/11/23 Range/Units 15:40 15:50 WBC 11.5 H (4.5-11.0) X10^3/uL RBC 4.48 (4.0-5.2) X10^6/uL Hgb 13.1 (12.0-16.0) g/dL Hct 38.1 (36-46) % MCV 85.1 (80-100) fL MCH 29.2 (26-34) PG MCHC 34.2 (30-36) % RDW 13.7 (11.6-14.8) % Plt Count 583 H (150-400) X10^3/uL Neut % (Auto) 71.7 (50-75) % Lymph % (Auto) 16.9 L (25-40) % Nelson % (Auto) 7.3 (3-14) % Eos % (Auto) 3.6 (2-4) % Baso % (Auto) 0.5 (0-2) % Neut # (Auto) 8200 H (0586-0232) /uL Lymph # (Auto) 1900 (9562-7990) /uL Nelson # (Auto) 800 (0-900) /uL Eos # (Auto) 400 (0-450) /uL Baso # (Auto) 100 (0-100) /uL PT 12.0 (9.4-12.5) SECONDS INR 1.0 (0.9-1.3) Sodium 130 L (137-145) mmol/L Potassium 5.1 (3.4-5.1) mmol/L Chloride 99 (98-107) mmol/L Carbon Dioxide 27 (22-32) mmol/L BUN 8 (7-17) mg/dL Creatinine 0.54 (0.52-1.04) mg/dL Estimated GFR > 60 (>60) mL/min BUN/Creatinine Ratio 14.8 (6-22) Glucose 123 H (80-110) mg/dL Lactate 0.8 (0.7-2.1) mmol/L Calcium 9.4 (8.4-10.2) mg/dL Total Bilirubin 0.5 (0.2-1.3) mg/dL AST 43 H (14-36) IU/L ALT 33 (<35) IU/L Alkaline Phosphatase 187 H (38-126) U/L Troponin I < 0.012 (0.01-0.034) ng/mL NT-Pro-B Natriuret Pep 484 H (<125) pg/mL Total Protein 7.2 (6.3-8.2) g/dL Albumin 3.7 (3.5-5.0) g/dL Globulin 3.5 (1.7-4.1) g/dL Albumin/Globulin Ratio 1.1 (1.0-2.8) SARS-CoV-2 (PCR) Negative (Negative) Influenza A (RT-PCR) Flu a negative (NEGATIVE) Influenza B (RT-PCR) Flu b negative (NEGATIVE) RSV (PCR) Negative (Negative) MDM Narrative Medical decision making narrative: 67-year-old female comes in with complaint of shortness of breath, patient has known metastatic lung cancer that is fairly new and progressive. Patient has not been hypoxic blood pressure has been low but she states she runs in the lower end. Patient labs overall show white count 11.5 normal hemoglobin platelets of 583. Sodium 130, potassium 5 1, BUN 8 with a creatinine of 0.5 far glucose of 123- lactate AST is 43 with an alk-phos of 187 negative troponin and a BNP of only 484. Chest x-ray shows a large right pleural effusion, patient is quite reluctant from thoracentesis. She has had once before states it was quite uncomfortable and she did not tolerate it well and it seemed to make her breathing worse. CT angio of the chest was obtained in order to rule out PE. CT shows a large right pleural effusion, no pulmonary emboli, patient does have masses present. Possible infection in the upper portion. Patient is very reluctant to have thoracentesis we did discuss it would likely make her feel better even with ambulation her oxygen does not drop below 94% although she feels very winded. Offered observation, thoracentesis. Patient is establishing with Oncology. Discussed she may return at any time. Dr. Golden-patient never seen by me, discharged prior to sign-out Discharge Plan Departure Patient Disposition: Home Clinical Impression: Pleural effusion on right, Lung cancer Activity Restrictions/Additional Instructions: Follow up with oncology at [facility]. You would benefit from a thoracentesis, is you have elected to not have one today I would talk to your oncology team about having 1 or possibly PleurX catheter for recurrent effusions. You may take oxycodone 1-2 tablets every 6 hours as needed for pain. Prescriptions sent to [facility] in [place]. Please return for new or worsening chest pain, increasing shortness of breath, lightheadedness, passing out, new swelling of your extremities or other new or concerning changes. Prescriptions: New oxycodone 5 mg tablet 5 mg PO Q6H PRN (Reason: pain) Qty: 20 0RF No Action ergocalciferol (vitamin D2) 1,250 mcg (50,000 unit) capsule 1,250 mcg PO DAILY albuterol sulfate 90 mcg/actuation HFA aerosol inhaler 2 inh inhalation Q6HR PRN (Reason: Wheezing) acetaminophen [Tylenol] 325 mg tablet 650 mg PO Q6H PRN (Reason: pain) Qty: 30 0RF Referrals: Sandhya Torres PA-C [Primary Care Provider] - Stand Alone Forms: Patient Portal/API
[2023-04-11] MEDS: SODIUM CHLORIDE 0.9% 500 ML 1000 ML IV (17:20)
--- NOTE | 2023-04-11 17:34 | DI.CT.S_ITS ---
PROCEDURE: CT ANGIO CHEST PE PROTOCOL INDICATIONS: sob, known cancer, worsening, effusion, r/o pe TECHNIQUE: After the administration of intravenous contrast, 2 mm thick sections acquired from the pulmonary apices to the posterior costophrenic angles. 3-dimensional maximum intensity projection (MIP) coronal and sagittal reformats were then acquired through the thorax. For radiation dose reduction, the following was used: automated exposure control, adjustment of mA and/or kV according to patient size. COMPARISON: [facility], CT, CT CHEST WITHOUT CONTRAST, 04/20/2022, 14:20. FINDINGS: Image quality: Diagnostic. Pulmonary arteries: Pulmonary arteries are normal in size, and demonstrate no intraluminal filling defects to suggest central pulmonary embolism. The proximal right pulmonary arteries are compressed but patent. Lower Neck: No enlarged lymph nodes. Thyroid: No thyroid nodules which require sonographic follow up, per consensus guidelines. Axillae: No enlarged lymph nodes. Chest Wall: Unremarkable. Bones: Unremarkable. Lungs and Pleura: Postsurgical changes from right upper lobe wedge resection. Large right pleural effusion. Atelectasis of the right lower middle lobes and majority of the right upper lobe. Hypoattenuation surrounding the wedge resection sutures extending to the hilum with a environmental marketing representative component measuring 3.2 x 3.8 centimeters and 10 centimeters in the craniocaudal dimension. Portion of the right upper lobe is aerated and demonstrates diffuse ground-glass and consolidation. Paraseptal emphysematous changes are seen within the left upper lobe. Ground-glass is seen within the posterior left upper lobe, likely infectious. Subpleural nodule within the left lower lobe measuring 5 millimeters (5/108). Additional 5 millimeter subpleural nodule in the posterior left lower lobe (5/90). Heart: Heart size is normal. Small to moderate pericardial effusion. Thoracic Vessels: No aortic aneurysm. Mediastinum and Kiersten: Multiple prominent lymph nodes. Small fluid within the mediastinum. Esophagus: No wall thickening. No hiatal hernia. Upper Abdomen: Prominent upper abdominal lymph nodes are noted. Otherwise, no upper abdomen solid organs and bowel loops appear normal. IMPRESSION: 1. No pulmonary embolus. 2. Large right pleural effusion. Atelectasis of majority of the right lower and middle lobes. Hypoattenuating lesion within the right upper lobe extending to the hilum with environmental marketing representative measurement of 3.2 x 3.8 centimeters and 10 centimeters in the craniocaudal dimension. Pulmonary arteries are compressed as they pass through this masslike lesion. Findings are concerning for mass. Infection is also in the differential. Recommend correlation with wedge resection pathology. 3. Within the aerated right upper lobe, there is ground-glass and consolidation. Ground-glass within the posterior left upper lobe. Findings are concerning for infection. 4. 5 millimeter left lower lobe subpleural nodules are noted. 5. Prominent mediastinal lymph nodes, may be reactive. Prominent upper abdominal lymph nodes are noted, nonspecific. Dictated by: Robles Manuel M.D. on 04/11/2023 at 18:32 Approved by: Robles Manuel M.D. on 04/11/2023 at 18:42
--- NOTE | 2023-04-11 20:02 | PC.NURSE ---
Left AC PIV was in place prior to this nurse shift 1900. DC documentation completed
== END 2023-04-11 20:03 | disposition home or self-care (01) ==
PROVIDERS: Emergency Provider Emergency Medicine; PCP Physician Assistant
DX: J90 Pleural effusion, not elsewhere classified (principal); C34.90 Malignant neoplasm of unspecified part of unspecified bronchus or lung; Z20.822 Contact with and (suspected) exposure to COVID-19
CPT/HCPCS: 0241U; 36415; 71045; 71275; 80053; 83605; 83880; 84484; 85025; 85610; 93005; 93010; 96361; 96374; 99284; J2270; Q9967

== ENCOUNTER 2023-04-12 13:18 | Emergency (ER) | payer OTHER, MEDICAID, SELFPAY ==
--- NOTE | 2023-04-12 | DI.RAD.S_ITS ---
PROCEDURE: XR CHEST 1V INDICATIONS: POST THORA TECHNIQUE: One view of the chest was acquired. COMPARISON: [facility], CR, XR CHEST 1V, 04/12/2023, 14:33. FINDINGS: Surgical changes and devices: None. Lungs and pleura : No pneumothorax. Decreased, small right pneumothorax. Moderate airspace opacity within the right upper and lower lung. Mediastinum: Mediastinal contours appear normal. Heart size is normal. Bones and chest wall: No suspicious bony lesions. Overlying soft tissues appear unremarkable. IMPRESSION: 1. Right lung pneumonia. Continued plain film surveillance is recommended to ensure resolution, and to exclude underlying or central malignancy. Dictated by: Alethea Hager M.D. on 04/12/2023 at 15:51 Approved by: Alethea Hager M.D. on 04/12/2023 at 15:52
[2023-04-12 13:27] VITALS: BP 100/61; PULSE 67; RESP 20; TEMP 36.6; O2SAT 97; BMI 18.0
--- NOTE | 2023-04-12 14:28 | DI.RAD.S_ITS ---
PROCEDURE: XR CHEST 1V INDICATIONS: large pleural effusion TECHNIQUE: One view of the chest was acquired. COMPARISON: , CR, XR CHEST 1V, 04/11/2023, 16:08. FINDINGS: Surgical changes and devices: None. Lungs and pleura: No change in large right pleural effusion and right apically density. Mediastinum: Mediastinal contours appear normal. Heart size is normal. Bones and chest wall: No suspicious bony lesions. Overlying soft tissues appear unremarkable. IMPRESSION: No change in large right pleural effusion right apical density. Continued plain film surveillance is recommended to ensure resolution, and to exclude underlying or central malignancy. Dictated by: Alethea Hager M.D. on 04/12/2023 at 14:45 Approved by: Alethea Hager M.D. on 04/12/2023 at 14:45
--- NOTE | 2023-04-12 14:30 | DI.US.S_ITS ---
PROCEDURE: US THORACENTESIS INDICATIONS: RIGHT PLEURAL EFFUSION TECHNIQUE: The indications, alternatives, benefits, risks, and complications of the procedure were explained to the patient. Written informed consent was obtained and placed in the chart. The chest was examined sonographically, and an appropriate site was chosen for thoracentesis. The skin was prepared and draped in the usual sterile fashion, and 1% lidocaine was infiltrated from the skin down through the pleural surface. A 19-gauge catheter-covered needle was then introduced into the pleural space, the catheter was advanced and the needle was withdrawn, and thereafter pleural fluid was aspirated. The catheter was then removed and a dressing was applied. COMPARISON: None. FINDINGS: Access site: Right hemithorax. Needle: One-Step centesis catheter with introducer needle. Fluid volume and description: 2 L of yellowish clear fluid. Fluid sent for diagnostic testing: None. Medications: 1% lidocaine for local anaesthesia. Complications: None; post-procedural chest radiograph is pending to assess for pneumothorax. IMPRESSION: Successful ultrasound-guided thoracentesis. Dictated by: Jacobo Antonio M.D. on 04/12/2023 at 15:25 Approved by: Jacobo Antonio M.D. on 04/12/2023 at 15:31
--- NOTE | 2023-04-12 15:34 | PC.NURSE ---
Pt was taken to DI immediately after she was roomed for thoracentesis, pt returned to room @ 1534
--- NOTE | 2023-04-12 15:42 | ED_ITS ---
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 Patient has had reoccurrence, has Mets throughout her lungs as well as masses, had thoracentesis and found to have adenocarcinoma within the pleural fluid. Had a PET scan May 2022 that showed only uptake in the primary tumor and had repeat PET scan on March 30, 2023 which showed metastatic lesions throughout the lungs, lymph nodes and possibly in the brain as well. Patient was seen yesterday for shortness of breath, orthopnea and dyspnea on exertion. She had a very large right pleural effusion. Patient was very reluctant to have thoracentesis yesterday as the prior she found made her feel like it was worse. Patient returns today for thoracentesis. Patient continues to have same symptoms no other acute changes. Current medications or B12 and vitamin-D. States only surgery before was lung resection. Prior smoker, no alcohol or recreational drugs. She is accompanied by her . She is currently in process of establishing with Oncology at [facility], she was following with a prior thoracic surgeon. Related Data Home Medications Medication Instructions Recorded Confirmed albuterol sulfate 90 mcg/actuation 2 inh inhalation Q6HR PRN Wheezing 04/11/23 04/11/23 aerosol inhaler ergocalciferol (vitamin D2) 1,250 1,250 mcg PO DAILY 04/11/23 04/11/23 mcg (50,000 unit) capsule Previous Rx's Medication Instructions Recorded acetaminophen 325 mg tablet 650 mg (2 x 325 mg) PO Q6H PRN 08/15/21 (Tylenol) pain #30 tabs oxycodone 5 mg tablet 5 mg PO Q6H PRN pain #20 tabs 04/11/23 Allergies Allergy/AdvReac Type Severity Reaction Status Date / Time Sulfa (Sulfonamide Allergy Unknown Verified 04/11/23 18:38 Antibiotics) Review of Systems Review of Systems ROS Unobtainable: All systems reviewed & are unremarkable except as noted in HPI and below Patient History Medical History (Updated 04/12/23 @ 16:02 by Toma Fritz DO) Laceration of vagina (12/03/17) Abdominal wall hernia (~11/2016) Surgical History (Updated 04/12/23 @ 16:02 by Toma Fritz DO) History of vaginal surgery (12/03/17) History of section (10/10/86) History of section (03/04/89) Family History Father No problems noted. Mother Cancer Sister No problems noted. Social History Smoking Status: Former smoker Tobacco: How many years used: 13 second hand exposure: No alcohol intake: never substance use type: marijuana (smoke a tiny bit every day.) Smoking Status: Former smoker alcohol intake frequency: holidays/special occasions only Substance Use Type: does not use Exam Narrative Exam Narrative: GENERAL: Alert and oriented x three, female moderate distress. HEENT: Head normocephalic, atraumatic, EOMI, pupils reactive, face symmetric, moist mucous membranes NECK: Supple, full range of motion CARDIOVASCULAR: Regular rate and rhythm without murmurs, rubs or gallops. RESPIRATORY: Breath sounds decreased on the right, positive for tachypnea, no accessory muscle use. ABDOMEN: Soft, nontender. Normoactive bowel sounds all 4 quadrants. No guarding or rebound, rigidity, no mass : No CVA tenderness EXTREMITIES: Normal range of motion, no clubbing or edema. Neurovascularly intact NEUROLOGICAL: Cranial nerves II through XII grossly intact. Moving all extremities SKIN: Warm, dry, no petechiae, no rashes or lesions. Initial Vital Signs Initial Vital Signs: Vital Signs Temperature 97.8 F 04/12/23 13:27 Pulse Rate 67 04/12/23 13:27 Respiratory Rate 20 04/12/23 13:27 Blood Pressure 100/61 04/12/23 13:27 Pulse Oximetry 97 04/12/23 13:27 Oxygen Delivery Method Room Air 04/12/23 13:27 Course Orders Ordered: ED Orders 04/12/23 14:28 Chest [XR chest 1V] Stat 04/12/23 14:30 US thoracentesis Stat 04/12/23 15:55 CBC Auto Diff [Complete Blood Count AUTO DIFF] Stat CMP [Comprehensive Metabolic Panel] Stat Lipase Stat PTT Partial Thromboplastin Shashank Stat Prothrombin Time INR Stat Vital Signs Vital signs: Vital Signs - 8 hr 04/12/23 13:27 04/12/23 16:00 04/12/23 17:00 Temperature 97.8 F Pulse Rate 67 87 89 Respiratory Rate 20 16 16 Blood Pressure 100/61 102/86 101/88 Pulse Oximetry 97 93 95 Oxygen Delivery Method Room Air Room Air Room Air 04/12/23 17:04 Temperature Pulse Rate 89 Respiratory Rate 16 Blood Pressure 104/86 Pulse Oximetry 96 Oxygen Delivery Method Room Air MDM - SOB/Dyspnea Lab Data 04/12/23 15:55 04/12/23 15:55 Labs: Lab Results 04/12/23 Range/Units 15:55 WBC 13.0 H (4.5-11.0) X10^3/uL RBC 4.62 (4.0-5.2) X10^6/uL Hgb 13.2 (12.0-16.0) g/dL Hct 40.2 (36-46) % MCV 87.1 (80-100) fL MCH 28.6 (26-34) PG MCHC 32.9 (30-36) % RDW 14.0 (11.6-14.8) % Plt Count 586 H (150-400) X10^3/uL Neut % (Auto) 76.3 H (50-75) % Lymph % (Auto) 12.7 L (25-40) % [place] % (Auto) 6.7 (3-14) % Eos % (Auto) 3.5 (2-4) % Baso % (Auto) 0.8 (0-2) % Neut # (Auto) 38710 H (5737-9720) /uL Lymph # (Auto) 1700 (0415-7156) /uL [place] # (Auto) 900 (0-900) /uL Eos # (Auto) 500 H (0-450) /uL Baso # (Auto) 100 (0-100) /uL PT 12.1 (9.4-12.5) SECONDS INR 1.1 (0.9-1.3) APTT 31 (25.1-36.5) SECONDS Sodium 131 L (137-145) mmol/L Potassium 4.7 (3.4-5.1) mmol/L Chloride 96 L (98-107) mmol/L Carbon Dioxide 31 (22-32) mmol/L BUN 10 (7-17) mg/dL Creatinine 0.74 (0.52-1.04) mg/dL Estimated GFR > 60 (>60) mL/min BUN/Creatinine Ratio 13.5 (6-22) Glucose 118 H (80-110) mg/dL Calcium 9.6 (8.4-10.2) mg/dL Total Bilirubin 0.4 (0.2-1.3) mg/dL AST 32 (14-36) IU/L ALT 30 (<35) IU/L Alkaline Phosphatase 199 H (38-126) U/L Total Protein 6.9 (6.3-8.2) g/dL Albumin 3.6 (3.5-5.0) g/dL Globulin 3.3 (1.7-4.1) g/dL Albumin/Globulin Ratio 1.1 (1.0-2.8) Lipase 21 L (23-300) U/L Imaging Data thoracentesis US: Radiologist's Impression: Close Thoracentesis Ultrasound (Signed) Jacobo Antonio - 04/12/23 Chest X-Ray (Signed) Alethea Hager - 04/12/23 Chest X-Ray 04/12/23 Chest CTA (Signed) Robles Maneul - 04/11/23 Chest X-Ray (Signed) Alethea Hager - 04/11/23 Chest X-Ray (Signed) Rhys Stovall - 10/10/22 PFT Result 06/03/22 Chest X-Ray (Signed) Heri Ulrich - 04/10/22 Chest X-Ray (Signed) Rhys Stovall - 08/15/21 Chest X-Ray (Cancelled) 08/15/[address] (Signed) Luzma Coughlin - 07/20/21 Pelvis Ultrasound (Signed) Rhys Stovall - 02/03/18 Finger X-Ray (Signed) Tripp Hartley - 01/09/18 Hand X-Ray (Signed) Arron Mandujano - 11/21/[address] [address] Ultrasound Report Signed Patient: Savannah Clement MR#: [id number] : 1955 Acct:[id number] Age/Sex: 67 / F Date of Service: 04/12/23 Loc: ED Accession Number: [id number] Procedure: US thoracentesis Ordering Provider: Toma Fritz D.O. PROCEDURE: US THORACENTESIS INDICATIONS: RIGHT PLEURAL EFFUSION TECHNIQUE: The indications, alternatives, benefits, risks, and complications of the procedure were explained to the patient. Written informed consent was obtained and placed in the chart. The chest was examined sonographically, and an appropriate site was chosen for thoracentesis. The skin was prepared and draped in the usual sterile fashion, and 1% lidocaine was infiltrated from the skin down through the pleural surface. A 19- gauge catheter-covered needle was then introduced into the pleural space, the catheter was advanced and the needle was withdrawn, and thereafter pleural fluid was aspirated. The catheter was then removed and a dressing was applied. COMPARISON: None. FINDINGS: Access site: Right hemithorax. Needle: One-Step centesis catheter with introducer needle. Fluid volume and description: 2 L of yellowish clear fluid. Fluid sent for diagnostic testing: None. Medications: 1% lidocaine for local anaesthesia. Complications: None; post-procedural chest radiograph is pending to assess for pneumothorax. IMPRESSION: Successful ultrasound-guided thoracentesis. Dictated by: Jacobo Antonio M.D. on 04/12/2023 at 15:25 Approved by: Jacobo Antonio M.D. on 04/12/2023 at 15:31 [facility] Narrative Medical decision making narrative: Spoke with Radiology, they kindly were able to perform ultrasound-guided thoracentesis for the patient. Patient feels significantly improved afterwards. Post x-ray shows improvement of effusion, as read as pneumonia but suspect some of this is from patient's known cancer. Patient did have labs repeated. Labs are overall fairly stable. Sodium is slightly up at 1:31 a.m. from 04/05 yesterday alk-phos is trended upwards slightly 199 normal renal function, LFTs are appropriate. Patient's white count slightly up as well as platelets. Chest x-ray notes pneumonia but patient has a mass that is about 10 cm x 3.8 x 3.2 cm in the right upper lobe but I suspect this is more what their visualizing her x-ray imaging. We will hold off on any antibiotics Patient continues to feel improved Discharge Plan Departure Patient Disposition: Home Clinical Impression: Pleural effusion, right, Lung cancer, Status post thoracentesis Instructions: DI for Thoracentesis Activity Restrictions/Additional Instructions: I hope you continue to feel improved after thoracentesis. Your primary care physician can also order to have these performed regularly as an outpatient procedure here at [facility]. I would also discussed with Oncology if you have recurrence of the effusion or fluid in your lung very quickly they will sometimes place a permanent form of catheter. Please return for fevers increasing chest pain or shortness of breath, lightheadedness or passing out, vomiting, new swelling in extremities or other new or concerning changes. Prescriptions: No Action ergocalciferol (vitamin D2) 1,250 mcg (50,000 unit) capsule 1,250 mcg PO DAILY albuterol sulfate 90 mcg/actuation HFA aerosol inhaler 2 inh inhalation Q6HR PRN (Reason: Wheezing) oxycodone 5 mg tablet 5 mg PO Q6H PRN (Reason: pain) Qty: 20 0RF acetaminophen [Tylenol] 325 mg tablet 650 mg PO Q6H PRN (Reason: pain) Qty: 30 0RF Referrals: Sandhya Torres PA-C [Primary Care Provider] - Stand Alone Forms: Patient Portal/API
[2023-04-12 16:00] VITALS: BP 102/86; PULSE 87; RESP 16; O2SAT 93
[2023-04-12 16:03] LABS: Add Manual Diff / Slide Review NO; Basophils Absolute Auto 100 /uL (0-100); Basophils Percent Auto 0.8 % (0-2); Eosinophils Absolute Auto 500 /uL (0-450); Eosinophils Percent Auto 3.5 % (2-4); Hematocrit 40.2 % (36-46); Hemoglobin 13.2 g/dL (12.0-16.0); Lymphocytes Absolute Auto 1700 /uL (1100-4500); Lymphocytes Percent Auto 12.7 % (25-40); Mean Corpuscular HGB Conc 32.9 % (30-36); Mean Corpuscular Hemoglobin 28.6 PG (26-34); Mean Corpuscular Volume 87.1 fL (80-100); Monocytes Absolute Auto 900 /uL (0-900); Monocytes Percent Auto 6.7 % (3-14); Neutrophils Absolute Auto 10000 /uL (1500-7000); Neutrophils Percent Auto 76.3 % (50-75); Platelet Count 586 X10^3/uL (150-400); Red Blood Cell Count 4.62 X10^6/uL (4.0-5.2)
[2023-04-12 16:15] LABS: INR 1.1 (0.9-1.3); Prothrombin Time 12.1 SECONDS (9.4-12.5)
[2023-04-12 16:19] LABS: Alanine Aminotransferase 30 IU/L (<35); Albumin 3.6 g/dL (3.5-5.0); Albumin Globulin Ratio 1.1 (1.0-2.8); Alkaline Phosphatase 199 U/L (38-126); Aspartate Aminotransferase 32 IU/L (14-36); BUN Creatinine Ratio 13.5 (6-22); Bilirubin Total 0.4 mg/dL (0.2-1.3); Blood Urea Nitrogen 10 mg/dL (7-17); Calcium 9.6 mg/dL (8.4-10.2); Carbon Dioxide 31 mmol/L (22-32); Chloride 96 mmol/L (98-107); Estimated Glomerular Filt Rate > 60 mL/min (>60); Globulin 3.3 g/dL (1.7-4.1); Glucose 118 mg/dL (80-110); HEMOLYSIS < 15 (0-50); Lipase 21 U/L (23-300); Potassium 4.7 mmol/L (3.4-5.1); Sodium 131 mmol/L (137-145); Total Protein 6.9 g/dL (6.3-8.2)
[2023-04-12 16:45] LABS: PTT Partial Thromboplastin Tim 31 SECONDS (25.1-36.5)
[2023-04-12 17:00] VITALS: BP 101/88; PULSE 89; RESP 16; O2SAT 95
[2023-04-12 17:04] VITALS: BP 104/86; PULSE 89; RESP 16; O2SAT 96
== END 2023-04-12 17:15 | disposition home or self-care (01) ==
PROVIDERS: Emergency Provider Emergency Medicine; PCP Physician Assistant
DX: J90 Pleural effusion, not elsewhere classified (principal); C34.91 Malignant neoplasm of unspecified part of right bronchus or lung
CPT/HCPCS: 32555; 36415; 71045; 80053; 83690; 85025; 85610; 85730; 99281; 99284

== ENCOUNTER 2023-04-19 11:23 | Emergency (ER) | payer OTHER, MEDICAID, SELFPAY ==
--- NOTE | 2023-04-19 | DI.RAD.S_ITS ---
PROCEDURE: XR CHEST 1V INDICATIONS: POST THORACENTESIS TECHNIQUE: One view of the chest was acquired. COMPARISON: [facility], , XR CHEST 1V, 04/12/2023, 15:17. [facility], , US THORACENTESIS, 04/12/2023, 14:55. [facility], , XR CHEST 1V, 04/19/2023, 13:11. FINDINGS: Surgical changes and devices: None. Lungs and pleura: No pneumothorax. Small right pleural effusion persists. No left pleural effusion. The left lung is clear. Mediastinum: Mediastinal contours appear normal. Heart size is normal. Bones and chest wall: No suspicious bony lesions. Overlying soft tissues appear unremarkable. IMPRESSION: No pneumothorax post thoracentesis. Dictated by: Esther Christiansen M.D. on 04/19/2023 at 16:21 Approved by: Esther Christiansen M.D. on 04/19/2023 at 16:22
[2023-04-19 12:31] VITALS: BP 91/52; PULSE 91; RESP 20; TEMP 36.7; O2SAT 96; BMI 17.3
--- NOTE | 2023-04-19 12:40 | DI.RAD.S_ITS ---
PROCEDURE: XR CHEST 1V INDICATIONS: Shortness of breath TECHNIQUE: One view of the chest was acquired. COMPARISON: [facility], CR, XR CHEST 1V, 04/12/2023, 15:17. FINDINGS: Surgical changes and devices: None. Lungs and pleura: Large right pleural effusion. Right lung consolidation which could represent atelectasis or pneumonia. No pneumothorax. Mediastinum: Mediastinal contours appear normal. Heart size is normal. Bones and chest wall: No suspicious bony lesions. Overlying soft tissues appear unremarkable. IMPRESSION: Large right pleural effusion. Right lung atelectasis and/or pneumonia. Recommend follow-up imaging to resolution of the lung consolidation to exclude underlying neoplastic process. Dictated by: Luzma Coughlin MD, PhD on 04/19/2023 at 13:20 Approved by: Luzma Couglhin MD, PhD on 04/19/2023 at 13:21
--- NOTE | 2023-04-19 15:04 | DI.US.S_ITS ---
PROCEDURE: US THORACENTESIS INDICATIONS: h/o cancer. TECHNIQUE: The indications, alternatives, benefits, risks, and complications of the procedure were explained to the patient. Written informed consent was obtained and placed in the chart. The chest was examined sonographically, and an appropriate site was chosen for thoracentesis. The skin was prepared and draped in the usual sterile fashion, and 1% lidocaine was infiltrated from the skin down through the pleural surface. A 19-gauge catheter-covered needle was then introduced into the pleural space, the catheter was advanced and the needle was withdrawn, and thereafter pleural fluid was aspirated. The catheter was then removed and a dressing was applied. COMPARISON: [facility], , XR CHEST 1V, 04/19/2023, 16:14. [facility], , US THORACENTESIS, 04/12/2023, 14:55. FINDINGS: Access site: Right hemithorax. Needle: One-Step centesis catheter with introducer needle. Fluid volume and description: 1950 mL; dark gil. Fluid sent for diagnostic testing: Not requested by referring physician. Medications: 1% lidocaine for local anaesthesia. Complications: None; post-procedural chest radiograph is pending to assess for pneumothorax. IMPRESSION: Successful ultrasound-guided thoracentesis. Dictated by: Esther Christiansen M.D. on 04/19/2023 at 16:39 Approved by: Esther Christiansen M.D. on 04/19/2023 at 16:40
[2023-04-19 16:52] VITALS: BP 96/61; PULSE 88; O2SAT 91
--- NOTE | 2023-04-19 18:40 | ED_ITS ---
HPI - SOB/Dyspnea <Gen Hernandez PA-C - Last Filed: 04/19/23 18:45> General Chief Complaint: Shortness of Breath/Dyspnea Stated Complaint: FLUID IN LUNGS Time Seen by Provider: 04/19/23 15:04 Source: patient Mode of arrival: Ambulatory History of Present Illness HPI Narrative: 67-year-old female with past medical history lung cancer, status post resection for invasive acinar adenocarcinoma presents to the ED with worsening shortness of breath. Patient has had reoccurrences, Mets throughout her lungs. Patient presented for this on 04/12/2023, had a therapeutic thoracentesis with much improvement. Patient returns to the ED today for a repeat therapeutic thoracentesis. No fever, chest pain. Related Data Home Medications Medication Instructions Recorded Confirmed albuterol sulfate 90 mcg/actuation 2 inh inhalation Q6HR PRN Wheezing 04/11/23 04/11/23 aerosol inhaler ergocalciferol (vitamin D2) 1,250 1,250 mcg PO DAILY 04/11/23 04/11/23 mcg (50,000 unit) capsule Previous Rx's Medication Instructions Recorded acetaminophen 325 mg tablet 650 mg (2 x 325 mg) PO Q6H PRN 08/15/21 (Tylenol) pain #30 tabs oxycodone 5 mg tablet 5 mg PO Q6H PRN pain #20 tabs 04/11/23 Allergies Allergy/AdvReac Type Severity Reaction Status Date / Time Sulfa (Sulfonamide Allergy Unknown Verified 04/11/23 18:38 Antibiotics) Review of Systems <Gen Hernandez PA-C - Last Filed: 04/19/23 18:45> Constitutional Constitutional: Denies chills, Denies fatigue, Denies fever(s), Denies frequent falls, Denies lethargy and Denies weakness Eyes Eyes: Denies change in vision, Denies eye discharge, Denies irritation and Denies loss of vision ENT Ears, Nose, Mouth, and Throat: Denies change in voice, Denies dizziness, Denies neck pain, Denies sore throat and Denies throat swelling Cardiovascular Cardiovascular: Denies chest pain, Denies irregular heart rhythm, Denies lightheadedness, Denies palpitations, Reports dyspnea, Denies dyspnea on exertion and Denies orthopnea Respiratory Respiratory: Denies cough, Reports dyspnea, Denies dyspnea on exertion and Denies wheezing Gastrointestinal Gastrointestinal: Denies abdominal pain, Denies change in bowel habits, Denies diarrhea, Denies nausea and Denies vomiting Musculoskeletal Musculoskeletal: Denies neck pain and Denies numbness Integumentary/Breasts Skin/Breast: Denies pruritus, Denies erythema, Denies rash and Denies wounds Neurologic Neurologic: Denies behavioral changes, Denies confusion, Denies dizziness, Denies frequent falls, Denies loss of vision, Denies numbness and Denies weakness Psychiatric Psychiatric: Denies anxiety, Denies behavioral changes, Denies confusion, Denies depression, Denies homicidal ideation and Denies suicidal ideation Endocrine Endocrine: Denies fatigue, Denies flushing and Denies palpitations Hematologic/Lymphatic Hematologic/Lymphatic: Denies easy bruising Allergic/Immunologic Allergic/Immunologic: Denies urticaria, Denies throat swelling and Denies wheezing Patient History <Gen Hernandez PA-C - Last Filed: 04/19/23 18:45> Medical History (Updated 04/12/23 @ 16:02 by Toma Fritz DO) Laceration of vagina (12/03/17) Abdominal wall hernia (~11/2016) Surgical History (Updated 04/19/23 @ 17:21 by Gen Hernandez PA-C) History of vaginal surgery (12/03/17) History of section (10/10/86) History of section (03/04/89) Family History Father No problems noted. Mother Cancer Sister No problems noted. Social History Smoking Status: Former smoker Tobacco: How many years used: 13 second hand exposure: No alcohol intake: never substance use type: marijuana (smoke a tiny bit every day.) Smoking Status: Former smoker alcohol intake frequency: holidays/special occasions only Substance Use Type: does not use Exam <Gen Hernandez PA-C - Last Filed: 04/19/23 18:45> Narrative Exam Narrative: Const General:?cooperative, healthy appearing and comfortable [facility] Head:?normal to inspection Ears:?hearing grossly normal bilaterally Nose:?external nose normal Face and sinus:?normal facial exam and sinuses nontender Mouth:?oral mucosae normal Throat:?posterior oropharynx normal Eyes General:?appearance normal, both eyes and all related structures Neck Neck:?normal visual inspection and no lymphadenopathy noted Resp Effort & Inspection:?normal respiratory effort Auscultation:?clear to auscultation bilaterally Cardio Rate:?regular rate Rhythm:?regular rhythm Neuro General:?patient alert, patient awake and patient oriented x3 Initial Vital Signs Initial Vital Signs: Vital Signs Temperature 98.1 F 04/19/23 12:31 Pulse Rate 91 H 04/19/23 12:31 Respiratory Rate 20 04/19/23 12:31 Blood Pressure 91/52 L 04/19/23 12:31 Pulse Oximetry 96 04/19/23 12:31 Oxygen Delivery Method Room Air 04/19/23 12:31 <DO Nava Alfaro Last Filed: 04/25/23 07:14> Initial Vital Signs Initial Vital Signs: Vital Signs Temperature 98.1 F 04/19/23 12:31 Pulse Rate 91 H 04/19/23 12:31 Respiratory Rate 20 04/19/23 12:31 Blood Pressure 91/52 L 04/19/23 12:31 Pulse Oximetry 96 04/19/23 12:31 Oxygen Delivery Method Room Air 04/19/23 12:31 Course <Gen Hernandez PA-C - Last Filed: 04/19/23 18:45> Orders Ordered: ED Orders 04/19/23 12:40 XR chest 1V Stat 04/19/23 15:04 US thoracentesis Stat Vital Signs Vital signs: Vital Signs - 8 hr 04/19/23 12:31 04/19/23 16:52 Temperature 98.1 F Pulse Rate 91 H 88 Respiratory Rate 20 Blood Pressure 91/52 L 96/61 Pulse Oximetry 96 91 Oxygen Delivery Method Room Air Room Air <DO Nava Alfaro Last Filed: 04/25/23 07:14> Orders Ordered: ED Orders 04/19/23 12:40 XR chest 1V Stat 04/19/23 15:04 US thoracentesis Stat Vital Signs Vital signs: Vital Signs - 8 hr 04/19/23 12:31 04/19/23 16:52 Temperature 98.1 F Pulse Rate 91 H 88 Respiratory Rate 20 Blood Pressure 91/52 L 96/61 Pulse Oximetry 96 91 Oxygen Delivery Method Room Air Room Air MDM - SOB/Dyspnea <CAMPOS Green Last Filed: 04/19/23 18:45> [facility] Narrative Medical decision making narrative: 67-year-old female with past medical history lung cancer, status post resection for invasive acinar adenocarcinoma presents to the ED with worsening shortness of breath. Radiology was able to perform a ultrasound-guided thoracentesis for the patient today. Patient feels significantly relieved after the procedure. Patient does not wish for any other interventions at this time. ED return precautions were discussed with patient. Patient verbalized understanding. Medical records reviewed: Yes Discharge Plan Departure Patient Disposition: Home Clinical Impression: Status post thoracentesis Instructions: DI for Thoracentesis Activity Restrictions/Additional Instructions: You were seen in the ED today for a therapeutic thoracentesis that was succe ssfully performed. It appears that your symptoms are much improved after this procedure. Please return to the ED if you have worsening symptoms, chest pain, shortness of breath. Prescriptions: No Action ergocalciferol (vitamin D2) 1,250 mcg (50,000 unit) capsule 1,250 mcg PO DAILY albuterol sulfate 90 mcg/actuation HFA aerosol inhaler 2 inh inhalation Q6HR PRN (Reason: Wheezing) oxycodone 5 mg tablet 5 mg PO Q6H PRN (Reason: pain) Qty: 20 0RF acetaminophen [Tylenol] 325 mg tablet 650 mg PO Q6H PRN (Reason: pain) Qty: 30 0RF Referrals: Sandhya Torres PA-C [Primary Care Provider] - Stand Alone Forms: Patient Portal/API ED Sign-out <Toma Fritz DO - Last Filed: 04/25/23 07:14> Cosign ED Attending Cosignature Attestation: I was immediately available in the department for consultation.
== END 2023-04-19 17:27 | disposition home or self-care (01) ==
PROVIDERS: Emergency Provider Student in an Organized Health Care Education/Training Program; PCP Physician Assistant
DX: J81.1 Chronic pulmonary edema (principal); R06.02 Shortness of breath
CPT/HCPCS: 32555; 71045; 99284

== ENCOUNTER → 2023-04-28 07:39 | Outpatient (CLI) | payer OTHER, MEDICAID, SELFPAY ==
--- NOTE | 2023-04-28 | DI.RAD.S_ITS ---
PROCEDURE: XR CHEST 1V INDICATIONS: POST THORACENTESIS TECHNIQUE: One view of the chest was acquired. COMPARISON: [facility], CT, CT ANGIO CHEST PE PROTOCOL, 04/11/2023, 17:42. [facility], US, US THORACENTESIS, 04/12/2023, 14:55. [facility], CR, XR CHEST 1V, 04/12/2023, 14:33. [facility], CR, XR CHEST 1V, 04/19/2023, 13:11. [facility], CR, XR CHEST 1V, 04/19/2023, 16:14. FINDINGS: Surgical changes and devices: None. Lungs and pleura: There is a small right pleural effusion. A loculated right hydropneumothorax is suspected. No apical pneumothorax. No midline shift. There is a masslike density in the right upper lobe. Haziness of the right lung. Small left pleural effusion is present, new. Mediastinum: Mediastinal contours appear normal. Heart size is normal. Bones and chest wall: No suspicious bony lesions. Overlying soft tissues appear unremarkable. IMPRESSION: 1. Small right pleural effusion. Suspect a [id number] sized loculated hydropneumothorax. No midline shift. No apical pneumothorax. No findings to suggest tension pneumothorax. 2. Small left pleural effusion, new since the last exam. I talked to the patient and her son after the procedure. The patient reports that she feels better after thoracenteses. The patient lives approximately 20 minutes from the hospital. I advised the patient and her son that she needs to come the ER if she develops increasing dyspnea or chest pain. The patient left the department in good condition. Dictated by: Esther Christiansen M.D. on 04/28/2023 at 8:43 Approved by: Esther Christiansen M.D. on 04/28/2023 at 8:56
--- NOTE | 2023-04-28 07:40 | DI.US.S_ITS ---
PROCEDURE: US THORACENTESIS INDICATIONS: Malignant pleural effusion TECHNIQUE: The indications, alternatives, benefits, risks, and complications of the procedure were explained to the patient. Written informed consent was obtained and placed in the chart. The chest was examined sonographically, and an appropriate site was chosen for thoracentesis. The skin was prepared and draped in the usual sterile fashion, and 1% lidocaine was infiltrated from the skin down through the pleural surface. A 19-gauge catheter-covered needle was then introduced into the pleural space, the catheter was advanced and the needle was withdrawn, and thereafter pleural fluid was aspirated. The catheter was then removed and a dressing was applied. COMPARISON: [facility], THORACENTESIS, 04/12/2023, 14:55. FINDINGS: Access site: Right hemithorax. Needle: One-Step centesis catheter with introducer needle. Fluid volume and description: 900 mL; bloody. Fluid sent for diagnostic testing: Not requested. Medications: 1% lidocaine for local anaesthesia. Complications: None; post-procedural chest radiograph is pending to assess for pneumothorax. IMPRESSION: Successful ultrasound-guided thoracentesis. Dictated by: Esther Christiansen M.D. on 04/28/2023 at 10:03 Approved by: Esther Christiansen M.D. on 04/28/2023 at 10:04
== END ==
PROVIDERS: PCP Physician Assistant; Referring Provider Family Medicine; Visit Provider Family Medicine
DX: C34.91 Malignant neoplasm of unspecified part of right bronchus or lung (principal); C79.51 Secondary malignant neoplasm of bone; C79.31 Secondary malignant neoplasm of brain; J91.0 Malignant pleural effusion; R59.0 Localized enlarged lymph nodes
CPT/HCPCS: 32555; 71045

== ENCOUNTER 2023-05-16 14:05 | Emergency (ER) | payer OTHER, MEDICAID, SELFPAY ==
--- NOTE | 2023-05-16 14:12 | ED.NAVMDI ---
HPI - Nausea/Vomiting/Diarrhea General Chief complaint: Nausea/Vomiting/Diarrhea Stated complaint: Weak/vomitting Time Seen by Provider: 05/16/23 14:10 History of Present Illness HPI Narrative: 67-year-old female with known history of lung cancer with wedge resection for invasive acinar adenocarcinoma in the past with repeat thoracentesis who presents after starting chemotherapy with nausea vomiting and diarrhea. Patient and family state that she had been constipated she was taking senna daily for the past several days. Started having nausea and vomiting this morning, as well as liquidy stool. Patient unclear if she feels any sort of stool in the rectal vault but states no abdominal pain. Patient has not had any fevers. Was hypoxic in the 89% range at home but has known COPD and has had known hypoxia and has home O2 that she uses as needed. Patient denies any back or flank pain. No reported urinary symptoms. Patient is allergic to sulfa. She has had recurrent thoracentesis but is very reluctant to have any. She does not have any respiratory distress currently. Related Data Home Medications Medication Instructions Recorded Confirmed albuterol sulfate 90 mcg/actuation 2 inh inhalation Q6HR PRN Wheezing 04/11/23 04/11/23 aerosol inhaler ergocalciferol (vitamin D2) 1,250 1,250 mcg PO DAILY 04/11/23 04/11/23 mcg (50,000 unit) capsule Previous Rx's Medication Instructions Recorded acetaminophen 325 mg tablet 650 mg (2 x 325 mg) PO Q6H PRN 08/15/21 (Tylenol) pain #30 tabs oxycodone 5 mg tablet 5 mg PO Q6H PRN pain #20 tabs 04/11/23 ondansetron 4 mg disintegrating 4 mg PO Q6H PRN nausea and 05/16/23 tablet vomiting #10 tabs Allergies Allergy/AdvReac Type Severity Reaction Status Date / Time Sulfa (Sulfonamide Allergy Unknown Verified 05/16/23 14:16 Antibiotics) Review of Systems Review of Systems ROS Unobtainable: All systems reviewed & are unremarkable except as noted in HPI and below Patient History Medical History (Updated 05/16/23 @ 18:25 by Toma Fritz DO) Laceration of vagina (12/03/17) Abdominal wall hernia (~11/2016) Surgical History History of vaginal surgery (12/03/17) History of section (10/10/86) History of section (03/04/89) Family History Father No problems noted. Mother Cancer Sister No problems noted. Social History Smoking Status: Former smoker Tobacco: How many years used: 13 second hand exposure: No alcohol intake: never substance use type: marijuana (smoke a tiny bit every day.) Smoking Status: Former smoker alcohol intake frequency: holidays/special occasions only Substance Use Type: does not use Exam Narrative Exam Narrative: GENERAL: Alert and oriented x three, thin cachectic female in mild distress. HEENT: Head normocephalic, atraumatic, EOMI, pupils reactive, face symmetric, moist mucous membranes NECK: Supple, full range of motion CARDIOVASCULAR: Regular rate and rhythm without murmurs, rubs or gallops. RESPIRATORY: Breath sounds equal bilaterally, no wheezes rales or rhonchi. No tachypnea or accessory muscle use. Speaks in 4-5 words. ABDOMEN: Soft, nontender. Nondistended. Normoactive bowel sounds all 4 quadrants. No guarding or rebound, rigidity, no mass : No CVA tenderness EXTREMITIES: Normal range of motion, no clubbing or edema. Neurovascularly intact NEUROLOGICAL: Cranial nerves II through XII grossly intact. Moving all extremities SKIN: Warm, dry, no petechiae, no rashes or lesions. Initial Vital Signs Initial Vital Signs: Vital Signs Temperature 98.7 F 05/16/23 14:13 Pulse Rate 102 H 05/16/23 14:13 Respiratory Rate 18 05/16/23 14:13 Blood Pressure 146/62 H 05/16/23 14:13 Pulse Oximetry 94 05/16/23 14:13 Oxygen Delivery Method Room Air 05/16/23 14:13 Course Orders Ordered: Discontinued Medications Hydromorphone HCl (Hydromorphone 0.5 Mg Inj) 0.5 mg IV NOW ONE Stop: 05/16/23 15:19 Last Admin: 05/16/23 15:24 Dose: 0.5 mg Documented By: [facility] Sodium Chloride (Normal Saline 0.9%) 1,000 mls @ 1,000 mls/hr IV BOLUS ONE Stop: 05/16/23 15:09 Last Infusion: 05/16/23 15:30 Dose: Infused Documented By: Admin: 05/16/23 14:30 Dose: 1,000 mls/hr Documented By: ALLISON Lidocaine HCl (Lidocaine 2% (Glydo) 6 Ml Gel) 6 ml TOP NOW ONE Stop: 05/16/23 17:04 Last Admin: 05/16/23 17:08 Dose: 6 ml Documented By: SHOLA Magnesium Citrate (Magnesium Citrate 300 Ml Solution) 300 ml PO NOW ONE Stop: 05/16/23 18:30 Last Admin: 05/16/23 18:40 Dose: 300 ml Documented By: SHOLA Mineral Oil (Mineral Oil 1 Each Enema) 1 each MO NOW ONE Stop: 05/16/23 15:23 Last Admin: 05/16/23 15:40 Dose: 1 each Documented By: SHOLA Ondansetron HCl (Ondansetron 4 Mg/2 Ml Inj) 4 mg IV Q6HR PRN PRN Reason: Nausea And Vomiting Last Admin: 05/16/23 14:30 Dose: 4 mg Documented By: ALLISON Vital Signs Vital signs: Vital Signs - 8 hr 05/16/23 14:13 05/16/23 16:09 05/16/23 16:48 Temperature 98.7 F 98.6 F Pulse Rate 102 H 86 Respiratory Rate 18 Blood Pressure 146/62 H 127/61 Pulse Oximetry 94 92 91 Oxygen Delivery Method Room Air Room Air Nasal Cannula Oxygen Flow Rate 2 MDM - Nausea/Vomiting/Diarrhea Lab Data 05/16/23 14:15 05/16/23 14:15 Labs: Lab Results 05/16/23 Range/Units 14:15 WBC 15.6 H (4.5-11.0) X10^3/uL RBC 4.16 (4.0-5.2) X10^6/uL Hgb 11.2 L (12.0-16.0) g/dL Hct 34.4 L (36-46) % MCV 82.8 (80-100) fL MCH 26.9 (26-34) PG MCHC 32.5 (30-36) % RDW 13.2 (11.6-14.8) % Plt Count 574 H (150-400) X10^3/uL Neut % (Auto) 89.2 H (50-75) % Lymph % (Auto) 5.8 L (25-40) % Mckinley % (Auto) 4.1 (3-14) % Eos % (Auto) 0.4 L (2-4) % Baso % (Auto) 0.5 (0-2) % Neut # (Auto) 32131 H (5459-9533) /uL Lymph # (Auto) 900 L (4277-3017) /uL Mckinley # (Auto) 600 (0-900) /uL Eos # (Auto) 100 (0-450) /uL Baso # (Auto) 100 (0-100) /uL Sodium 126 L (137-145) mmol/L Potassium 3.8 (3.4-5.1) mmol/L Chloride 92 L (98-107) mmol/L Carbon Dioxide 29 (22-32) mmol/L BUN 10 (7-17) mg/dL Creatinine 0.68 (0.52-1.04) mg/dL Estimated GFR > 60 (>60) mL/min BUN/Creatinine Ratio 14.7 (6-22) Glucose 115 H (80-110) mg/dL Calcium 9.4 (8.4-10.2) mg/dL Total Bilirubin 0.5 (0.2-1.3) mg/dL AST 79 H (14-36) IU/L ALT 53 H (<35) IU/L Alkaline Phosphatase 368 H (38-126) U/L Total Protein 7.0 (6.3-8.2) g/dL Albumin 3.5 (3.5-5.0) g/dL Globulin 3.5 (1.7-4.1) g/dL Albumin/Globulin Ratio 1.0 (1.0-2.8) Lipase 28 (23-300) U/L Imaging Data CT scan - abdomen/pelvis: Radiologist's Impression: Close Abdomen/Pelvis CT (Signed) [facility] - 05/16/23 Launch?[address] [address] [address] Scan Report Signed Patient: Savannah Clement MR#: [id number] : 1955 Acct:[id number] Age/Sex: 67 / F Date of Service: 05/16/23 Loc: ED Accession Number: [id number] Procedure: CT abdomen pelvis w con Ordering Provider: Toma Fritz D.O. PROCEDURE: CT ABDOMEN PELVIS W CON INDICATIONS: vomiting/diarrhea, on chemo for lung ca TECHNIQUE: After the administration of intravenous contrast, axial sections acquired from the lung bases to the pubic symphysis. Coronal and sagittal reformats were performed. For radiation dose reduction, the following was used: automated exposure control, adjustment of mA and/or kV according to patient size. COMPARISON: [facility], CT, CT CHEST ABDOMEN PELVIS WITH CONTRAST, 03/05/2021, 19:04. [facility], US, US THORACENTESIS, 04/28/2023, 8:07. [facility], CT, CT ANGIO CHEST PE PROTOCOL, 04/11/2023, 17:42. [facility], CR, XR CHEST 1V, 04/28/2023, 8:39. FINDINGS: Image quality: Diagnostic. Lower Chest: Right lower lung large consolidation with air bronchograms. Large loculated right pleural effusion, decreased. Small amount of air within the effusion which could be related to prior thoracentesis. Small pericardial effusion, unchanged. Mild loculated appearing fluid in the right pericardial space, (04/28), not previously loculated. Mild ground-glass opacity in the left lung. Multiple small pulmonary nodules in the left lung. ABDOMEN: Liver: Enlarged. Hypodense focus in segment 4A, (), not seen on remote CT from 2020. Indeterminate. Trace fluid adjacent to the liver. Gallbladder: Distended. No calcified stones seen. Biliary ducts: No biliary dilation. Pancreas: No ductal dilation. Spleen: Size is within normal limits. Adrenal Glands: No adrenal nodules. Kidneys and Ureters: No hydronephrosis. Subtle area of hypodensity in the mid right kidney, (253), not appreciated on prior CT. No kidney stones identified. Small benign cyst in the left kidney. Stomach and Bowel: Stomach is not distended. No small bowel obstruction. Fluid-filled loops of small bowel in the left abdomen. Prominent stool in the rectum and colon. Normal appendix. Peritoneum: No significant ascites. No free air. Ventral Wall: No significant ventral hernia. Abdominal Nodes: No retroperitoneal or mesenteric adenopathy by size criteria. Vessels: Aorta and inferior vena cava are normal in size. Atherosclerotic plaque. PELVIS: Pelvic Organs: Trace free fluid in the pelvis. Bladder: Distended. Pelvic Nodes: No enlarged lymph nodes. Miscellaneous: No inguinal hernias are seen. Bones: No aggressive osseous abnormality. IMPRESSION: 1. Large right basilar pleural effusion is now loculated. Trace hydropneumothorax. 2. Right lower lobe consolidation. Mild ground-glass opacity in the left lung. Multiple small nodules in the left lung. 3. Hypodense focus in segment 4A of the liver. Indeterminate. This could represent metastatic disease. This could be further characterized with liver MRI. Trace free fluid adjacent to the liver. 4. Small area of hypodensity in the right kidney. This is indeterminate but could be seen in the setting of focal pyelonephritis. No significant perinephric fluid. 5. Large volume of stool. No small bowel obstruction. Fluid-filled loops of small bowel in the left abdomen. Dictated by: Fransico Ramirez M.D. on 05/16/2023 at 14:47 Approved by: Fransico Ramirez M.D. on 05/16/2023 at 15:04 [facility] Narrative Medical decision making narrative: 67-year-old female with known cancer, currently on chemotherapy which is new with nausea vomiting diarrhea. Patient was quite constipated was put on senna what she had been taking until the last day. Her family states she has had very minimal intake. Each time she tries to eat or drink she seems to have a bowel movement that is liquidy. No black or blood was appreciated by patient or family. Labs patient has a white count of 15, hemoglobin 11 platelets are 574. Predominance of neutrophils. Sodium is 126 was 131 on April 12, potassium 3 8 chloride 92 with a BUN 10 and creatinine 0.68 glucose is 115 LFTs are slightly elevated with an AST of 79 ALT 53 alk-phos of 368, bilirubin is 0.5 with a lipase of 28. CT shows large right basilar pleural effusion no loculated tries hydro right lower lobe consolidation mild ground-glass opacity left lobe small nodules in the left long hypodense segment 8 4 liver indeterminate could represent metastatic disease trace fluid adjacent to the liver with a small area of hypodensity right kidney indeterminate, no significant perinephric fluid. Large volume of stool no bowel obstruction fluid-filled loops of small bowel in the left abdomen. Images were also reviewed by myself. Patient has stool somewhat throughout but would likely benefit from enema and possible disimpaction. Patient is agreeable. Patient attempted disimpaction with minimal output. Patient's stool was little bit difficult to reach had some small pieces out but was able to break it up. Patient would like to try another enema. She does not wish to try for additional digital impaction. Plan for Mag citrate at home along with continuing MiraLax and senna. Also discussed with family they can try glycerin suppositories. Discharge Plan Departure Patient Disposition: Home Clinical Impression: Constipation Instructions: DI for Constipation Activity Restrictions/Additional Instructions: Your imaging does show quite a bit of stool throughout the bowel. It also shows that the fluid on the right is now loculated or in little sections, there is also some spots in the liver and right kidney. I would recommend continuing with oral stool softeners, hydrate as your able and enemas to help with regular stooling while you are taking narcotic pain medication. Continue with miralax daily and senna daily. You can take Zofran 1 tablet every 6 hours as needed for nausea. Prescription sent to [facility]. You can use glycerin suppositories as needed at home. Some individuals will also choose to use enemas as needed. Sulfa often helpful to eat high-fiber foods that have lot hydration such as watermelon. Please return for new or worsening abdominal back or flank pain, persistent vomiting, if you are not having any bowel movements or passing any gas or other new or concerning changes. Prescriptions: New ondansetron 4 mg tablet,disintegrating 4 mg PO Q6H PRN (Reason: nausea and vomiting) Qty: 10 0RF No Action ergocalciferol (vitamin D2) 1,250 mcg (50,000 unit) capsule 1,250 mcg PO DAILY albuterol sulfate 90 mcg/actuation HFA aerosol inhaler 2 inh inhalation Q6HR PRN (Reason: Wheezing) oxycodone 5 mg tablet 5 mg PO Q6H PRN (Reason: pain) Qty: 20 0RF acetaminophen [Tylenol] 325 mg tablet 650 mg PO Q6H PRN (Reason: pain) Qty: 30 0RF Referrals: Sandhya Torres PA-C [Primary Care Provider] - Stand Alone Forms: Patient Portal/API
[2023-05-16 14:13] VITALS: BP 146/62; PULSE 102; RESP 18; TEMP 37.1; O2SAT 94; BMI 47.2
[2023-05-16 14:24] LABS: Add Manual Diff / Slide Review NO; Basophils Absolute Auto 100 /uL (0-100); Basophils Percent Auto 0.5 % (0-2); Eosinophils Absolute Auto 100 /uL (0-450); Eosinophils Percent Auto 0.4 % (2-4); Hematocrit 34.4 % (36-46); Hemoglobin 11.2 g/dL (12.0-16.0); Lymphocytes Absolute Auto 900 /uL (1100-4500); Lymphocytes Percent Auto 5.8 % (25-40); Mean Corpuscular HGB Conc 32.5 % (30-36); Mean Corpuscular Hemoglobin 26.9 PG (26-34); Mean Corpuscular Volume 82.8 fL (80-100); Monocytes Absolute Auto 600 /uL (0-900); Monocytes Percent Auto 4.1 % (3-14); Neutrophils Absolute Auto 13900 /uL (1500-7000); Neutrophils Percent Auto 89.2 % (50-75); Platelet Count 574 X10^3/uL (150-400); Red Blood Cell Count 4.16 X10^6/uL (4.0-5.2); Red Cell Distribution Width 13.2 % (11.6-14.8); White Blood Cell Count 15.6 X10^3/uL (4.5-11.0)
[2023-05-16] MEDS: ONDANSETRON 4 MG/2 ML INJ IV (14:30)
[2023-05-16] MEDS: SODIUM CHLORIDE 0.9% 1,000 ML 1000 ML IV (14:30)
[2023-05-16 14:40] LABS: Alanine Aminotransferase 53 IU/L (<35); Albumin 3.5 g/dL (3.5-5.0); Alkaline Phosphatase 368 U/L (38-126); Aspartate Aminotransferase 79 IU/L (14-36); BUN Creatinine Ratio 14.7 (6-22); Bilirubin Total 0.5 mg/dL (0.2-1.3); Blood Urea Nitrogen 10 mg/dL (7-17); Calcium 9.4 mg/dL (8.4-10.2); Carbon Dioxide 29 mmol/L (22-32); Chloride 92 mmol/L (98-107); Estimated Glomerular Filt Rate > 60 mL/min (>60); Globulin 3.5 g/dL (1.7-4.1); Glucose 115 mg/dL (80-110); HEMOLYSIS < 15 (0-50); Lipase 28 U/L (23-300); Potassium 3.8 mmol/L (3.4-5.1); Sodium 126 mmol/L (137-145)
--- NOTE | 2023-05-16 14:44 | PC.NURSE ---
pt is requesting to not be on her oxygen today. states that it dries her out too much. sats are 87-88 percent on room air. Dr. Fritz aware and respiratory aware. RT at bedside with patient. She continues to refuse oxygen. humidification and masks were offered. Dr. Fritz aware of all of the above findings.
--- NOTE | 2023-05-16 14:47 | RT ---
Spoke to pt about whether she is willing to use supplementary O2, as it is indicated. RT also offered humidified air via aerosol mask. The pt refused both modalities. RN and provider aware.
--- NOTE | 2023-05-16 14:49 | PC.NURSE ---
Addendum entered by Jo Chaudhry R.N. 05/16/23 15:10: Pt decided that she did not want to take her own pain medication. States that she would prefer IV pain medication. Dr. Fritz aware and will order. Original Note: Dr. Fritz approved family to give patient her own Oxycodone 10 mg po now. Pt took her own dose.
[2023-05-16] MEDS: HYDROMORPHONE 0.5 MG INJ IV (15:24)
[2023-05-16] MEDS: MINERAL OIL 1 EACH ENEMA PR (15:40)
--- NOTE | 2023-05-16 16:03 | PC.NURSE ---
Pt declining to wear pulse ox on finger. Dr Fritz ok with pt being off monitor with hourly VS.
[2023-05-16 16:09] VITALS: BP 127/61; PULSE 86; TEMP 37; O2SAT 92
[2023-05-16 16:48] VITALS: O2SAT 91
--- NOTE | 2023-05-16 16:48 | PC.NURSE ---
patient requesting oxygen. 2LNC started
[2023-05-16] MEDS: LIDOCAINE 2% (GLYDO) 6 ML GEL TOP (17:08)
--- NOTE | 2023-05-16 17:47 | PC.NURSE ---
Stand by assistance for digital disimpactment by Dr Fritz. Able to break up some stool but unable to remove stool. Pt tolerated well. Additional enema administered
[2023-05-16] MEDS: MAGNESIUM CITRATE 300 ML SOLUTION PO (18:40)
[2023-05-16 18:43] VITALS: BP 124/76; PULSE 82; RESP 18; O2SAT 92
== END 2023-05-16 18:43 | disposition home or self-care (01) ==
PROVIDERS: Emergency Provider Emergency Medicine; PCP Physician Assistant
DX: K59.00 Constipation, unspecified (principal); C34.90 Malignant neoplasm of unspecified part of unspecified bronchus or lung
CPT/HCPCS: 36415; 74177; 80053; 83690; 85025; 96361; 96374; 96375; 99284; 99285; J1170; J2405; Q9967